=== PATIENT | male | born 1955 | race Caucasian/White ===

== ENCOUNTER → 2016-10-02 | Outpatient (CLI) | payer MEDICARE ==
[~2016-10-02] MED LIST: ALBU17IN INH; ASPI1TAB PO; CLAR10CA3 PO; DULC5TAB PO; IBUP200C PO; LISI10TA4 PO; PREV30CA11 PO; SPIR1CAP INH; SYMB16INH INH; VITA100066 PO; VITA500C24 PO
--- NOTE | 2016-10-02 15:17 | REP ---
REASON: Tobacco abuse. COMPARISON: None. Only the lung window images were sent to the PACS system for review. There is evidence of lung field hyperexpansion. There is evidence of bibasilar cylindrical bronchiectasis. In the left upper lobe, there is a 4 mm sized nodule. Within this nodule and eccentrically located, there is a tiny dot of calcification, which is difficult to assess due to the tiny lesional size. IMPRESSION: Positive screening CT examination of the lungs as described above. Signed by Erick Martinez DO 10/02/2016 04:18 P
== END ==
LOC: M RAD 12:44
PROVIDERS: ATTEND Internal Medicine Pulmonary Disease
DX: Z12.2 Encounter for screening for malignant neoplasm of respiratory organs (principal); Z72.0 Tobacco use; R91.8 Other nonspecific abnormal finding of lung field

== ENCOUNTER → 2016-11-07 | Outpatient (REF) | payer MEDICARE ==
[2016-11-07 18:44] LABS: INR 0.85
== END ==
LOC: M LAB REF 16:54
PROVIDERS: ATTEND Internal Medicine
DX: R23.3 Spontaneous ecchymoses (principal)

== ENCOUNTER → 2017-12-03 | Outpatient (REF) | payer MEDICARE ==
[2017-12-04 14:33] LABS: TOTAL PROTEIN 7.8 GM/DL (6.4-8.2)
[2017-12-08 14:45] LABS: ALBUMIN 4.13 GM/DL (3.29-5.55); ALBUMIN % 52.9 % (55.8-66.1); ALPHA-1-GLOBULIN % 4.5 % (2.9-4.9); ALPHA-1-GLOBULINS 0.35 GM/DL (0.17-0.41); ALPHA-2-GLOBULINS 1.03 GM/DL (0.42-0.99); ALPHA-2-GLOBULINS % 13.2 % (7.1-11.8); BETA-1-GLOBULINS 0.54 GM/DL (0.28-0.60); BETA-1-GLOBULINS % 6.9 % (4.7-7.2); BETA-2-GLOBULINS 0.41 GM/DL (0.19-0.55); BETA-2-GLOBULINS % 5.2 % (3.2-6.5); GAMMA GLOBULIN % 17.3 % (11.1-18.8); GAMMA GLOBULINS 1.35 GM/DL (0.65-1.58)
== END ==
LOC: M LAB REF 13:30
DX: R74.8 Abnormal levels of other serum enzymes (principal); M19.90 Unspecified osteoarthritis, unspecified site
CPT/HCPCS: 84165

== ENCOUNTER → 2018-04-06 | Outpatient (CLI) | payer MEDICARE | LOC: M RAD 06:49 | DX: J43.2 Centrilobular emphysema (principal); R91.8 Other nonspecific abnormal finding of lung field; J84.10 Pulmonary fibrosis, unspecified | CPT/HCPCS: 71250 ==

== ENCOUNTER → 2018-12-12 | Outpatient (CLI) | payer MEDICARE ==
[~2018-12-12] MED LIST changes: -ASPI1TAB PO; +ASPI81TA26 PO; -IBUP200C PO; +IBUP200C25 PO; +PREV1CAP PO; -PREV30CA11 PO
[2018-12-12 17:35] LABS: HEMATOCRIT 48.8 % (42.0-52.0); HEMOGLOBIN 16.2 g/dl (13.5-17.5); MEAN CORPUSCULAR HEMOGLOBIN 32.7 pg (27.0-33.0); MEAN CORPUSCULAR HGB CONC 33.2 g/dl (32.0-36.5); MEAN CORPUSCULAR VOLUME 98.6 fl (80.0-96.0); PLATELET COUNT, AUTOMATED 339 10^3/uL (150-450); RED BLOOD COUNT 4.95 10^6/uL (4.30-6.10); WHITE BLOOD COUNT 7.8 10^3/uL (4.0-10.0)
[2018-12-12 17:38] LABS: APPEARANCE, URINE CLEAR (CLEAR); BACTERIA, URINE AUTO NEGATIVE (NEGATIVE); BILIRUBIN, URINE AUTO NEGATIVE (NEGATIVE); BLOOD, URINE BLOOD NEGATIVE (NEGATIVE); COLOR, URINE YELLOW (YELLOW); GLUCOSE, URINE (UA) AUTO NEGATIVE (NEGATIVE); KETONE, URINE AUTO NEGATIVE (NEGATIVE); LEUKOCYTE ESTERASE, URINE AUTO NEGATIVE (NEGATIVE); MUCUS, URINE SMALL (NEGATIVE); NITRITE, URINE AUTO NEGATIVE (NEGATIVE); PROTEIN, URINE AUTO NEGATIVE (NEGATIVE); RBC, URINE AUTO 0 /HPF (0-3); SPECIFIC GRAVITY URINE AUTO 1.018 (1.002-1.035); SQUAMOUS EPITHELIAL CELL UR AU 0 /HPF (0-6); UROBILINOGEN, URINE AUTO 0.2 mg/dL (0.0-2.0); WBC, URINE AUTO 0 /HPF (0-3)
[2018-12-12 19:35] LABS: BLOOD UREA NITROGEN 10 MG/DL (7-18); CALCIUM LEVEL 9.6 MG/DL (8.8-10.2); CARBON DIOXIDE LEVEL 24 MEQ/L (21-32); CHLORIDE LEVEL 104 MEQ/L (98-107); CHOLESTEROL LEVEL 212 MG/DL (<200); CHOLESTEROL RISK RATIO 3.593 (<5); GLOMERULAR FILTRATION RATE > 60.0 (>49); GLUCOSE, FASTING 96 MG/DL (70-100); HDL CHOLESTEROL 59 MG/DL (>40); LDL CHOLESTEROL 130 MG/DL (<100); NON-HDL-C 153 MG/DL; POTASSIUM SERUM 4.5 MEQ/L (3.5-5.1); SODIUM LEVEL 138 MEQ/L (136-145); TRIGLYCERIDES LEVEL 117 MG/DL (<150)
== END ==
LOC: M ADAMS 09:54
PROVIDERS: ATTEND Internal Medicine
DX: I10 Essential (primary) hypertension (principal); E78.00 Pure hypercholesterolemia, unspecified; Z13.89 Encounter for screening for other disorder

== ENCOUNTER → 2019-04-08 | Outpatient (CLI) | payer MEDICARE ==
--- NOTE | 2019-04-08 14:33 | REP ---
CT CHEST WITHOUT CONTRAST: HISTORY: Solitary pulmonary nodule. COMPARISON: Chest CT study, April 06, 2018. Also reviewed are CT studies from April 02, 2017 and October 02, 2016. The most recent prior study showed a new 4 mm noncalcified nodule in the right lower lobe. CT FINDINGS: The originally noted 4 mm right upper lobe nodule is again seen, unchanged since the September 2016 prior study. This was shown to have calcific Hounsfield unit numbers on the prior exam. The previously noted and stable left lower lobe nodule is again seen, unchanged. The recently identified right lower lobe nodule is not seen today. There is an inflammatory or postinflammatory pattern of multiple new tiny nodules in the posterior lung gutter in the left lower lobe and posteromedially in the left lower lobe. These changes are new from the prior study and most likely reflect inflammatory changes. There are emphysematous changes in the lower lobes bilaterally as before. No pleural or pericardial effusion is seen. There are scattered stable mediastinal lymph nodes again noted, unchanged. No adrenal lesion is observed. Minimal vascular calcification is seen. IMPRESSION: Stable right upper lobe and left lower lobe nodules, unchanged and benign. Recently identified right lower lobe nodule is not seen today. Today's study shows likely postinflammatory changes in the left lower lobe. Electronically Signed by Jacoby Mancilla MD 04/08/2019 04:06 P
== END ==
LOC: M RAD 11:28
PROVIDERS: ATTEND Internal Medicine Pulmonary Disease
DX: R91.1 Solitary pulmonary nodule (principal)

== ENCOUNTER → 2019-06-14 | Outpatient (REF) | payer MEDICARE ==
[2019-06-14 13:09] LABS: BASO # 0.1 10^3/uL (0.0-0.2); BASO % 1.4 % (0.0-1.0); EOS # 0.1 10^3/uL (0.0-0.5); EOS % 1.7 % (0.0-3.0); HEMATOCRIT 50.7 % (42.0-52.0); LYMPH # 1.7 10^3/uL (1.5-5.0); LYMPH % 20.8 % (24.0-44.0); MEAN CORPUSCULAR HEMOGLOBIN 32.8 pg (27.0-33.0); MEAN CORPUSCULAR HGB CONC 33.5 g/dl (32.0-36.5); MEAN CORPUSCULAR VOLUME 97.7 fl (80.0-96.0); MONO # 0.8 10^3/uL (0.0-0.8); MONO % 10.3 % (0.0-5.0); NEUTROPHILS # 5.3 10^3/uL (1.5-8.5); NEUTROPHILS % 65.4 % (36.0-66.0); PLATELET COUNT, AUTOMATED 389 10^3/uL (150-450); RED BLOOD COUNT 5.19 10^6/uL (4.30-6.10); WHITE BLOOD COUNT 8.1 10^3/uL (4.0-10.0)
[2019-06-14 13:48] LABS: ALBUMIN 3.7 GM/DL (3.2-5.2); ALT/SGPT 51 U/L (12-78); BILIRUBIN,TOTAL 0.6 MG/DL (0.2-1.0); BLOOD UREA NITROGEN 10 MG/DL (7-18); CALCIUM LEVEL 9.4 MG/DL (8.8-10.2); CARBON DIOXIDE LEVEL 26 MEQ/L (21-32); CHLORIDE LEVEL 100 MEQ/L (98-107); CHOLESTEROL LEVEL 208 MG/DL (<200); CHOLESTEROL RISK RATIO 3.924 (<5); GLOMERULAR FILTRATION RATE > 60.0 (>49); GLUCOSE, FASTING 82 MG/DL (70-100); HDL CHOLESTEROL 53 MG/DL (>40); LDL CHOLESTEROL 126 MG/DL (<100); NON-HDL-C 155 MG/DL; POTASSIUM SERUM 4.8 MEQ/L (3.5-5.1); SODIUM LEVEL 136 MEQ/L (136-145); THYROID STIMULATING HORMONE 0.959 uIU/ML (0.358-3.740); TOTAL PROTEIN 7.7 GM/DL (6.4-8.2); TRIGLYCERIDES LEVEL 143 MG/DL (<150)
== END ==
LOC: M LABDRWAD 12:30
PROVIDERS: ATTEND Internal Medicine
DX: Z12.5 Encounter for screening for malignant neoplasm of prostate (principal); I10 Essential (primary) hypertension; E78.00 Pure hypercholesterolemia, unspecified
CPT/HCPCS: 36415; 80053; 80061; 84443; 85027; G0103

== ENCOUNTER → 2019-11-30 | Outpatient (REF) | payer MEDICARE ==
[~2019-11-30] MED LIST changes: +ALBU83IN INH; +AMLO1TAB25 PO; +ASPI81CH8 PO; +ATOR40TA75 PO; +BUPR-332 PO; +CLOP75TA2 PO; +D31000TA2 PO; +PANT20TA6 PO; +PROAAER10 INH
[2019-11-30 14:23] LABS: BASO # 0.1 10^3/uL (0.0-0.2); BASO % 1.1 % (0.0-1.0); EOS # 0.1 10^3/uL (0.0-0.5); EOS % 1.1 % (0.0-3.0); HEMATOCRIT 53.4 % (42.0-52.0); HEMOGLOBIN 17.2 g/dl (13.5-17.5); LYMPH # 1.9 10^3/uL (1.5-5.0); MEAN CORPUSCULAR HEMOGLOBIN 31.9 pg (27.0-33.0); MEAN CORPUSCULAR HGB CONC 32.2 g/dl (32.0-36.5); MEAN CORPUSCULAR VOLUME 99.1 fl (80.0-96.0); MONO # 0.9 10^3/uL (0.0-0.8); MONO % 10.1 % (0.0-5.0); NEUTROPHILS # 6.3 10^3/uL (1.5-8.5); NEUTROPHILS % 67.3 % (36.0-66.0); PLATELET COUNT, AUTOMATED 405 10^3/uL (150-450); RED BLOOD COUNT 5.39 10^6/uL (4.30-6.10); WHITE BLOOD COUNT 9.3 10^3/uL (4.0-10.0)
[2019-11-30 14:26] LABS: APPEARANCE, URINE CLEAR (CLEAR); BACTERIA, URINE AUTO NEGATIVE (NEGATIVE); BILIRUBIN, URINE AUTO NEGATIVE (NEGATIVE); BLOOD, URINE BLOOD NEGATIVE (NEGATIVE); COLOR, URINE YELLOW (YELLOW); GLUCOSE, URINE (UA) AUTO NEGATIVE (NEGATIVE); KETONE, URINE AUTO NEGATIVE (NEGATIVE); LEUKOCYTE ESTERASE, URINE AUTO NEGATIVE (NEGATIVE); MUCUS, URINE SMALL (NEGATIVE); NITRITE, URINE AUTO NEGATIVE (NEGATIVE); PROTEIN, URINE AUTO NEGATIVE (NEGATIVE); RBC, URINE AUTO 2 /HPF (0-3); SPECIFIC GRAVITY URINE AUTO 1.019 (1.002-1.035); SQUAMOUS EPITHELIAL CELL UR AU 0 /HPF (0-6); UROBILINOGEN, URINE AUTO 0.2 mg/dL (0.0-2.0); WBC, URINE AUTO 1 /HPF (0-3)
[2019-11-30 15:23] LABS: ALBUMIN 3.6 GM/DL (3.2-5.2); ALT/SGPT 45 U/L (12-78); BILIRUBIN,TOTAL 0.6 MG/DL (0.2-1.0); BLOOD UREA NITROGEN 11 MG/DL (7-18); CALCIUM LEVEL 9.4 MG/DL (8.8-10.2); CARBON DIOXIDE LEVEL 27 MEQ/L (21-32); CHLORIDE LEVEL 101 MEQ/L (98-107); CHOLESTEROL LEVEL 192 MG/DL (<200); CHOLESTEROL RISK RATIO 3.764 (<5); GLOMERULAR FILTRATION RATE > 60.0 (>49); GLUCOSE, FASTING 85 MG/DL (70-100); HDL CHOLESTEROL 51 MG/DL (>40); LDL CHOLESTEROL 125 MG/DL (<100); NON-HDL-C 141 MG/DL; POTASSIUM SERUM 4.7 MEQ/L (3.5-5.1); SODIUM LEVEL 133 MEQ/L (136-145); TOTAL PROTEIN 7.8 GM/DL (6.4-8.2); TRIGLYCERIDES LEVEL 81 MG/DL (<150)
[2019-11-30 16:45] LABS: FOLATE 13.7 NG/ML; VITAMIN B12 LEVEL 625 PG/ML
== END ==
LOC: M LABDRWAD 12:53
PROVIDERS: ATTEND Internal Medicine
DX: R73.09 Other abnormal glucose (principal); I10 Essential (primary) hypertension; E78.00 Pure hypercholesterolemia, unspecified; R53.1 Weakness; F10.99 Alcohol use, unspecified with unspecified alcohol-induced disorder; E78.1 Pure hyperglyceridemia

== ENCOUNTER → 2019-12-01 | Outpatient (CLI) | payer MEDICARE | LOC: M LABDRWAD 15:02 | PROVIDERS: ATTEND Internal Medicine | DX: E87.1 Hypo-osmolality and hyponatremia (principal); R53.1 Weakness; M19.90 Unspecified osteoarthritis, unspecified site; F10.99 Alcohol use, unspecified with unspecified alcohol-induced disorder; Z13.89 Encounter for screening for other disorder ==

== ENCOUNTER → 2019-12-02 | Outpatient (CLI) | payer MEDICARE ==
[~2019-12-02] MED LIST changes: -AMLO1TAB25 PO; -ASPI81CH8 PO; -ATOR40TA75 PO; -CLOP75TA2 PO; -D31000TA2 PO; +PANT20TA2 PO; -PANT20TA6 PO; +VITAD1000T PO
[2019-12-02 13:35] LABS: C REACTIVE PROTEIN QUANTITATIV 1.61 MG/DL (0.00-0.30)
[2019-12-06 16:06] LABS: Lyme Disease IgG/IgM Antibodie <0.91 ISR (0.00-0.90); Lyme Disease IgM Ab Quantitati <0.80 index (0.00-0.79); VITAMIN B1 LEVEL WHOLE BLOOD 138.3 nmol/L (66.5-200.0); ZINC PLASMA 77 ug/dL (56-134)
== END ==
LOC: M LABDRWAD 08:14
PROVIDERS: ATTEND Internal Medicine
DX: E87.1 Hypo-osmolality and hyponatremia (principal); R53.1 Weakness; M19.90 Unspecified osteoarthritis, unspecified site; F10.99 Alcohol use, unspecified with unspecified alcohol-induced disorder; Z13.89 Encounter for screening for other disorder

== ENCOUNTER 2019-12-06 17:20 | Inpatient (IN) | payer MEDICARE ==
[~2019-12-06] VITALS: Ht 180.3 cm; Wt 80.2 kg
[~2019-12-06 17:20] MED LIST changes: -ALBU83IN INH; -BUPR-332 PO; -PANT20TA2 PO; -PROAAER10 INH; -VITAD1000T PO
[2019-12-06 18:32] LABS: BASO # 0.1 10^3/uL (0.0-0.2); BASO % 1.2 % (0.0-1.0); EOS # 0.2 10^3/uL (0.0-0.5); HEMATOCRIT 48.6 % (42.0-52.0); HEMOGLOBIN 16.5 g/dl (13.5-17.5); LYMPH % 19.9 % (24.0-44.0); MEAN CORPUSCULAR VOLUME 94.4 fl (80.0-96.0); MONO # 1.1 10^3/uL (0.0-0.8); MONO % 10.9 % (0.0-5.0); NEUTROPHILS # 6.7 10^3/uL (1.5-8.5); NEUTROPHILS % 65.5 % (36.0-66.0); PLATELET COUNT, AUTOMATED 399 10^3/uL (150-450); RED BLOOD COUNT 5.15 10^6/uL (4.30-6.10); WHITE BLOOD COUNT 10.2 10^3/uL (4.0-10.0)
[2019-12-06] MEDS ORDERED: PROAAER10 INH (18:35)
[2019-12-06] MEDS ORDERED: PANT20TA2 PO (18:35)
[2019-12-06] MEDS ORDERED: BUPR-332 PO (18:35)
[2019-12-06] MEDS ORDERED: VITAD1000T PO (18:35)
[2019-12-06] MEDS ORDERED: ALBU83IN INH (18:35)
[2019-12-06 18:45] LABS: INR 0.9; PROTHROMBIN TIME 11.9 SECONDS (11.8-14.0)
[2019-12-06] MEDS ORDERED: ALBUTEROL SULFATE 2.5 MG/0.5 ML INH NEB SOLN INH PRN (18:45)
[2019-12-06] MEDS ORDERED: ALBUTEROL 90 MCG/ACT 8GM HFA INHALER INH PRN (18:45)
[2019-12-06 18:51] LABS: ETHYL ALCOHOL (ETHANOL) < 0.003 % (0.000-0.010)
[2019-12-06 18:54] LABS: ALBUMIN 3.3 GM/DL (3.2-5.2); BILIRUBIN,DIRECT 0.1 MG/DL (0.0-0.2); BILIRUBIN,TOTAL 0.5 MG/DL (0.2-1.0); TOTAL PROTEIN 7.2 GM/DL (6.4-8.2)
[2019-12-06] MEDS: MULTIVITAMINS/MINERALS THERAP 1 TAB PO SCH (18:56)
[2019-12-06] MEDS: FOLIC ACID 1 MG TAB PO SCH (18:56)
[2019-12-06 19:22] LABS: RHEUMATOID FACTOR QUANT < 10.0 IU/ML (<15.0)
[2019-12-06 19:34] LABS: D-DIMER QUANT 747.25 ng/ml (<500)
--- NOTE | 2019-12-06 20:00 | REPVR ---
PROCEDURE INFORMATION: Exam: US Duplex Bilateral Extracranial Arteries Exam date and time: 12/06/2019 7:41 PM Age: 64 years old Clinical indication: Other: CVA TECHNIQUE: Imaging protocol: Real-time Duplex ultrasound scan of the bilateral carotid and vertebral arteries combining woodard scale, color Doppler and spectral waveform analysis. Bilateral exam. COMPARISON: No relevant prior studies available. FINDINGS: Right common carotid artery: Minimal noncalcific plaque distal CCA. Otherwise unremarkable. No occlusion or significant stenosis. Waveforms are normal. Right internal carotid artery: Minimal noncalcific plaque in the proximal ICA. No occlusion or significant stenosis. Waveforms are normal. Right ICA/CCA ratio: Within normal limits. 0.97 Right external carotid artery: No stenosis in the origin. Right vertebral artery: Unremarkable. Antegrade flow. Left common carotid artery: Minimal noncalcific plaque distal CCA. Otherwise unremarkable. No occlusion or significant stenosis. Waveforms are normal. Left internal carotid artery: Minimal noncalcific plaque in the proximal ICA. No occlusion or significant stenosis. Waveforms are normal. Left ICA/CCA ratio: Within normal limits. 0.84 Left external carotid artery: No stenosis in the origin. Left vertebral artery: Unremarkable. Antegrade flow. IMPRESSION: 1. Mild noncalcific plaque in the distal CCA is and proximal ICAs bilaterally resulting in a mild 2. Stenosis well in the 50% using SRU criteria. 3. Normal directional flow in the vertebral a a arteries. REFERENCES: SRU CRITERIA. The degree of internal carotid artery stenosis is based on criteria defined by the Society of Radiologists in Ultrasound (SRU). Normal is no stenosis. Mild is less than 50% stenosis. Moderate is 50-69% stenosis. Severe is greater than 69% stenosis to near occlusion. Near occlusion is a markedly narrowed lumen. Total occlusion is no detectable patent lumen. Electronically signed by: Darnell Alcantara On 12/06/2019 20:00:13 PM
[2019-12-06] MEDS: SIMVASTATIN 10 MG TAB PO SCH (20:08)
[2019-12-06] MEDS: LORazepam 2 MG TAB PO PRN (20:08)
[2019-12-06] MEDS: THIAMINE 100 MG TAB PO SCH (20:08)
[2019-12-06] MEDS: SYMBICORT 160/4.5MCG INHALER 6GM INH SCH (20:20)
[2019-12-06 20:23] VITALS: BP 148/86
[2019-12-06 20:23] LABS: ERYTHROCYTE SEDIMENTATION RATE 4 mm/hr (0-20)
[2019-12-06] MEDS ORDERED: NICOTINE POLACRILEX 2 MG GUM PO ONE (21:15)
[2019-12-06] MEDS ORDERED: NICOTINE POLACRILEX 2 MG GUM PO PRN (21:15)
[2019-12-06] MEDS ORDERED: amLODIPine 10 MG TAB PO ONE (21:15)
[2019-12-06] MEDS ORDERED: SLF 3 ML SYR IV PRN (21:45)
[2019-12-06] MEDS: SLF 3 ML SYR IV SCH (22:00)
[2019-12-06 22:32] LABS: HEMATOCRIT 46.7 % (42.0-52.0); HEMOGLOBIN 15.8 g/dl (13.5-17.5); MEAN CORPUSCULAR HEMOGLOBIN 32.3 pg (27.0-33.0); MEAN CORPUSCULAR HGB CONC 33.8 g/dl (32.0-36.5); MEAN CORPUSCULAR VOLUME 95.5 fl (80.0-96.0); PLATELET COUNT, AUTOMATED 352 10^3/uL (150-450); RED BLOOD COUNT 4.89 10^6/uL (4.30-6.10); WHITE BLOOD COUNT 8.9 10^3/uL (4.0-10.0)
[2019-12-06] MEDS: NICOTINE 21MG/24HR 1 EA TRANSDERMAL TD SCH (23:23)
[2019-12-07] VITALS: BP 136/86
[2019-12-07 04:00] VITALS: BP 155/79
--- NOTE | 2019-12-07 04:41 | REP ---
CHEST: REASON: History of COPD, dyspnea. FINDINGS: The technique utilized in obtaining the radiograph has magnified the cardiac silhouette and accentuated the interstitial markings. The superior mediastinal structures are midline. The cardiac silhouette is unremarkable in size, shape, and position. The diaphragmatic surfaces of the lungs are regular, and the costophrenic angles are clear. The pulmonary cardozo are clear. The imaged osseous structures are intact. IMPRESSION: There is no acute cardiopulmonary disease. Electronically Signed by Erick Martinez DO 12/07/2019 11:37 A
[2019-12-07] MEDS: SLF 3 ML SYR IV SCH ×3 (05:04→20:07)
[2019-12-07 06:17] LABS: HEMATOCRIT 48.5 % (42.0-52.0); HEMOGLOBIN 16.3 g/dl (13.5-17.5); MEAN CORPUSCULAR HGB CONC 33.6 g/dl (32.0-36.5); MEAN CORPUSCULAR VOLUME 95.1 fl (80.0-96.0); PLATELET COUNT, AUTOMATED 383 10^3/uL (150-450); WHITE BLOOD COUNT 7.9 10^3/uL (4.0-10.0)
[2019-12-07 06:28] LABS: HEMOGLOBIN A1c 5.6 %
[2019-12-07 06:45] LABS: ALBUMIN 3.2 GM/DL (3.2-5.2); ALT/SGPT 32 U/L (12-78); BILIRUBIN,DIRECT 0.1 MG/DL (0.0-0.2); BILIRUBIN,TOTAL 0.4 MG/DL (0.2-1.0); BLOOD UREA NITROGEN 10 MG/DL (7-18); CARBON DIOXIDE LEVEL 26 MEQ/L (21-32); CHLORIDE LEVEL 102 MEQ/L (98-107); CHOLESTEROL LEVEL 171 MG/DL (<200); CHOLESTEROL RISK RATIO 4.071 (<5); CREATININE FOR GFR 0.83 MG/DL (0.70-1.30); GLOMERULAR FILTRATION RATE > 60.0 (>49); GLUCOSE, FASTING 93 MG/DL (70-100); HDL CHOLESTEROL 42 MG/DL (>40); LDL CHOLESTEROL 108 MG/DL (<100); NON-HDL-C 129 MG/DL; POTASSIUM SERUM 4.3 MEQ/L (3.5-5.1); SODIUM LEVEL 135 MEQ/L (136-145); TOTAL PROTEIN 6.8 GM/DL (6.4-8.2); TRIGLYCERIDES LEVEL 105 MG/DL (<150)
[2019-12-07] MEDS: TIOTROPIUM INHALER/CAPSULE (SPIRIVA) INH SCH (07:19)
[2019-12-07] MEDS: SYMBICORT 160/4.5MCG INHALER 6GM INH SCH ×2 (07:19→20:04)
[2019-12-07 08:00] VITALS: BP_SYST 152; BP_DIAS 84; BP_DIAS 88
[2019-12-07] MEDS: VITAMIN D 1,000 INTERNATIONAL UNITS TABLET PO SCH (08:13)
[2019-12-07] MEDS: THIAMINE 100 MG TAB PO SCH ×2 (08:14→20:06)
[2019-12-07] MEDS: buPROPion **XL** TABLET 150MG (WELLBUTRIN XL) PO SCH (08:14)
[2019-12-07] MEDS: PANTOPRAZOLE 20 MG TAB PO SCH (08:14)
[2019-12-07] MEDS: MULTIVITAMINS/MINERALS THERAP 1 TAB PO SCH (08:14)
[2019-12-07] MEDS: FOLIC ACID 1 MG TAB PO SCH (08:15)
--- NOTE | 2019-12-07 08:17 | ECGEPIP ---
[facility] - ED Test Date: 2019-12-06 Pat Name: ITALO CARIAS Department: Room: - Gender: Male Member Of Congress: ABDON : 1955 Requested By: Darryl Apple Order Number: [id number] Reading MD: Kellen Falk Measurements Intervals [place] Rate: 88 P: 76 MI: 169 QRS: 50 QRSD: 93 T: 70 QT: 353 QTc: 428 Interpretive Statements SINUS RHYTHM RIGHT VENTRICULAR CONDUCTION DELAY No prior Electronically Signed on 12-07-2019 8:17:10 EDT by Kellen Falk
[2019-12-07] MEDS: amLODIPine 10 MG TAB PO SCH (08:20)
[2019-12-07 10:48] LABS: HEMATOCRIT 48.3 % (42.0-52.0); HEMOGLOBIN 16.4 g/dl (13.5-17.5); MEAN CORPUSCULAR HEMOGLOBIN 32.1 pg (27.0-33.0); MEAN CORPUSCULAR VOLUME 94.5 fl (80.0-96.0); PLATELET COUNT, AUTOMATED 390 10^3/uL (150-450); RED BLOOD COUNT 5.11 10^6/uL (4.30-6.10); WHITE BLOOD COUNT 9.2 10^3/uL (4.0-10.0)
--- NOTE | 2019-12-07 11:01 | IPNPDOC ---
Text Note Date of Service The patient was seen on 12/07/19. NOTE Mr. Lauren was seen at bedside this morning and repored no changes in his con dition overnight. He seems to be a poor historian and only knows that his recent MRI has some vague ministroke findings and that his brain is smaller than it should be. He states that he was seeing his PCP at a already scheduled visit and was thought to have new onset memory deficits and improper balance, this prompting the MRI w/ and w/o contrast. He states that at baseline he only has the respiratory capacity to move to his couch from his bed and vice-versa, which he blames on his extensive smoking use/history. He reports chronic tinnitus in both ears due labyrinthitis, denies any current or recent headaches, FNDs, changes in vision, sensation loss. Physical Exam: Vitals: See Below General: disheveled, older than stated age appearing well nourished male laying in bed in no apparent distress HEENT: EOMI. CN V, VII, II, IX, X appear normal. Conjunctiva normal CV: RRR, No murmurs, rubs, gallops noted Respiratory: Lungs CTA B/L. No wheezing, rales, rhonchi Abdomen: Obese abdomen. No organomegaly noted. No bruising or discolorations. Extremities: No extremity edema. Pulses equal and normal in all four extremities. Neuro: No FND. Muscle strength 5/5 in all extremities but cannot test R should due to unrelated shoulder pain. CNII-XII intact. AA X3. Dysmetria on finger to nose testing with a possible intention tremor R>L Assessment and Plan: This is a 64 year old male with a Pmhx significant for alcoholism who presented to [facility] ER due to evidence of multiple R MCA subacute infarcts on a semi-recent brain MRI ordered due to concerns his PCP had regarding new balance deficits, memory loss, and mental status changes in Mr. Lauren. Neuro was consulted and recommended a coagulopathy/vasculitis workup and a MRA to further characterize Mr. Lauren vascular condition. Mr Lauren himself states that he feels fine and has not noticed any deficits currently. Plan: #Multiple Subacute R MCA infarcts with global atrophy and evidence of past lacunar infarcts: -Pt on ASA 325 mg PO QD -Neuro consulted and we greatly appreciate their input and assistance in this case -Brain MRA ordered and pending -Fibrinogen, INR 0.9 and D-Dimer elevated indicating a possible hypercoagulable state -Coagulopathy/vasculitis workup ordered and pending (including ATIII activity, FII mutation, FV Leiden, Lupus workup, TRISTIN, AMA ect. -Carotid US shows mild-moderate stenosis of B/L carotids approximately 50% occluded -MRI shows possible occlusion of multiple intracranial vessels which will be further explored with MRA -Continue Simvastatin 30 mg QHS PO -Lipid Panel normal with the exception of LDL 108 -PT/OT consults placed #Alcoholism: -CIWA protocol initiated -Ethyl alcohol <0.03 in ER -B1, folic acid and multivitamin ordered #COPD 2/2 Tobacco Dependence: -Continue nicotine replacement patches -Continue budesonide/formoterol fumarate inhalers -Continue Albuterol inhalers -Continue Tiotropium [place] inhaler #HTN 2/ withdrawal: -Continue Amlodipine 10 mg -Maintain between 140-180 systolic #Depression: -Continue Wellbutrin #Vit D Deficiency: -On Vit D supplementation #Reflux: -Continue Protonix #DVT Prophylaxis: Lovenox Disposition: Discharge pending further evaluation of subacute infarct etiologies GME ATTESTATION I have personally evaluated and examined the patient. Discussed with resident/student regarding plan of care and agree with the above assessment and plan. VS,Marvin, I+O VS, Vashtie, I+O Laboratory Tests 12/06/19 18:04 12/06/19 22:03 12/07/19 05:20 Vital Signs Date Time Temp Pulse Resp B/P (MAP) Pulse Ox O2 Delivery O2 Flow Rate FiO2 12/07/19 08:20 77 152/84 12/07/19 08:00 97.3 17 94 Room Air I&O- Last 24 Hours up to 6 AM 12/07/19 06:00 Intake Total 0 ml Output Total 250 ml Balance -250 ml WAQAR MERCADO OMS-3 Dec 07, 2019 11:01 DARY DOMINGUEZ D.O. Dec 07, 2019 16:46 CLOVIS GORDILLO MD Dec 07, 2019 18:32
[2019-12-07] MEDS: ASPIRIN 325 MG TAB PO SCH (11:45)
--- NOTE | 2019-12-07 12:16 | HPE ---
DATE OF ADMISSION: 12/06/2019 CHIEF COMPLAINT: 1. Abnormal MRI. 2. "I do not walk good," for two weeks. HISTORY OF PRESENT ILLNESS: This is a 64-year-old alcoholic with chronic obstructive pulmonary disease (COPD) who presented to his primary care physician two weeks ago with complaints of "I do not walk good." The patient says that he has no muscle tone, usually drags his feet and never thought about his gait abnormality due to chronic history of vertigo. The patient has been falling down at home especially when he has his whiskey. He is slow to get up and has had proximal muscle weakness, difficult to get out of a couch. He says that he usually uses a cane and a walker for the past two weeks because of difficulty moving around, difficulty getting up from a sitting position. He has felt increasingly weak, feeling like he has had to drag his feet. He complains of neuropathy on the right fingertips but is still able to carry on with his activities of daily living (ADLs). According to the patient, he has been increasingly clumsy and sometimes falls in his garage. He says that he lands on the beer cans, his finds him there, and gets the neighbor to get him up usually. He was seen by Dr. Pizano two weeks ago who ordered an MRI of the brain. MRI done today showed right middle cerebral artery (MCA) infarcts and lacunar infarcts. Per emergency room (ER) physician, the patient's vascular Doppler, carotid Doppler showed mild noncalcific plaque in the distal common carotid artery (CCA) and proximal internal carotid arteries (ICAs) bilaterally resulting in mild stenosis well into 50% using Society of Radiologists in Ultrasound (SRU) criteria with normal directional flow in the vertebral arteries. Echocardiogram is pending. The patient has been started on aspirin and Zocor. Hospitalist was asked to admit. PAST MEDICAL HISTORY: Vertigo, depression, labyrinthitis, chronic obstructive pulmonary disease (COPD), left heel injury, diverticulosis, nonbleeding internal hemorrhoids, splenic flexure polyps. ALLERGIES: No known drug allergies. SOCIAL HISTORY: The patient is a heavy drinker, usually drinks about 12 beers a day, uses a carton of cigarettes per week, 20 in one pack with 10 packs, starting smoking at the age of 10. 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 He lives with his . Five steps into the home. Everything is on one floor. Healthcare proxy is Gertrude, his . The patient could not remember his 's phone number. Per records, phone number at home is [phone]. FAMILY HISTORY: Father age 86 with alcohol and hepatitis C. Mother in her 40s, in a snow storm in 1967 due to a motor vehicle accident. One brother four years older, unknown medical problems, and possible hypertension. REVIEW OF SYSTEMS: Per history of present illness (HPI), 12-point system otherwise negative. PHYSICAL EXAMINATION: Temperature 98.4, pulse 91, respiratory rate 18, blood pressure 157/91, repeat blood pressure 148/86, 95% on room air. GENERAL: The patient is awake, alert, oriented to person, place and time, answers questions appropriately. Appears disheveled and edentulous. Appears older than his stated age. On neurologic, the patient has dysmetria on [id number] testing. Face is symmetric. Tongue is midline. No pronator drift. Motor function is 4/5 in the left lower extremity, 5/5 bilateral upper extremities, right lower extremity is 5/5. Gait was not tested. Deep tendon reflexes are intact 2+ throughout. No jugular venous distention (JVD) or thyromegaly. Lungs are clear to auscultation. No wheezing, rales, or rhonchi. HEART: S1, S2, sinus rhythm. No murmurs, rubs, or gallops. Abdomen is soft, nontender, nondistended. Positive bowel sounds. EXTREMITIES: No cyanosis or clubbing. EKG: Sinus rhythm. No acute ST-T wave changes. Ventricular rate of 88. ] LABORATORY DATA: White count 8.9, hemoglobin 15, hematocrit 46, platelet count 352. Sodium 133, potassium 4.5, chloride 101, bicarbonate 27, BUN 11, creatinine 1, glucose of 85. IMAGING STUDIES: MRI of the brain per Dr. Arias, right MCA CVA, lacunar infarcts, subacute. ASSESSMENT AND PLAN: 1. Subacute cerebrovascular accident (CVA), right middle cerebral artery (MCA) with gait ataxia and instability along with some memory issues. The patient currently is dependent on his cane and walker at home which is new for the past two weeks. Acute rehabilitation unit (ARU) has been consulted. He has been started on aspirin and Zocor. Check lipid panel in the morning. Tobacco cessation counseling has been provided. Neurologic checks every four hours. Allow for permissive hypertension for now. We will await further recommendations from neurology. Dr. Baez has been consulted. 2. Alcohol abuse, on Clinical [place] Withdrawal Assessment (CIWA) protocol as well as delirium tremens (DT) precautions and seizure precautions. Currently on multivitamin, thiamine and folate. 3. Active tobacco abuse, history of chronic obstructive pulmonary disease (COPD). The patient is on nicotine replacement. 4. Reflux disease concerning for possible alcoholic gastritis. Continue on Protonix now that the patient is on aspirin. 5. Hypertension secondary to withdrawal. Continue on Ativan, CIWA protocol, Norvasc 10 mg daily. 6. Depression, on Wellbutrin. 7. Vitamin D deficiency, on vitamin D supplementation. CODE STATUS: Full code.
[2019-12-07 14:00] VITALS: BP 138/74
[2019-12-07 16:00] VITALS: BP_SYST 158; BP_SYST 164; BP_DIAS 86
[2019-12-07 20:00] VITALS: BP 142/88
[2019-12-07] MEDS: SIMVASTATIN 10 MG TAB PO SCH (20:06)
[2019-12-07] MEDS: LORazepam 2 MG TAB PO PRN (20:06)
[2019-12-07] MEDS: NICOTINE 21MG/24HR 1 EA TRANSDERMAL TD SCH (20:07)
--- NOTE | 2019-12-07 20:30 | REPVR ---
PROCEDURE INFORMATION: Exam: MR Angiogram Head Without Contrast, Arteries Exam date and time: 12/07/2019 7:42 PM Age: 64 years old Clinical indication: Condition or disease; Other: CVA on outpt mri TECHNIQUE: Imaging protocol: MR angiogram head without contrast. Exam focused on the arteries. 3D rendering: MIP and/or 3D reconstructed images were created by the technologist. COMPARISON: US Duplex,carotid (complete) 12/06/2019 7:27 PM FINDINGS: Right middle cerebral artery: There is high-grade stenosis of the M1 segment on the right with marked decrease in the number of middle cerebral arterial branches. Left vertebral artery: The left vertebral artery is very small compared to the right. Basilar artery: There is no evidence of aneurysm of the [id number] and no evidence of tip of the basilar aneurysm. Brain: There are prominent oval areas of CSF signal intensity throughout the basal ganglia region bilaterally consistent with areas of encephalomalacia from old ischemic change. There is also enlargement of the right lateral ventricle consistent with focal atrophy. This is all probably secondary to chronic ischemic changes much greater on the right. There is no area of bright signal intensity left basal ganglia region which could represent calcification. I would recommend a CT scan of the brain without and with contrast for clarification of this. IMPRESSION: 1. There is severe stenosis of the right middle cerebral artery and marked decrease in the number of right middle cerebral branches. 2. Numerous areas old ischemic change throughout the basal ganglia region which is much greater on the right. 3. Area of increased density left basal ganglia region may be calcification but recommend CT scan without and with contrast clarification and to exclude pathology. Electronically signed by: Branden Campos On 12/07/2019 20:29:57 PM
[2019-12-08] VITALS: BP 138/74
[2019-12-08 04:00] VITALS: BP 144/84
[2019-12-08] MEDS: SLF 3 ML SYR IV SCH ×3 (04:08→20:24)
[2019-12-08 05:38] LABS: HEMATOCRIT 47.6 % (42.0-52.0); HEMOGLOBIN 16.2 g/dl (13.5-17.5); MEAN CORPUSCULAR HEMOGLOBIN 32.3 pg (27.0-33.0); MEAN CORPUSCULAR VOLUME 94.8 fl (80.0-96.0); PLATELET COUNT, AUTOMATED 338 10^3/uL (150-450); RED BLOOD COUNT 5.02 10^6/uL (4.30-6.10)
[2019-12-08 05:59] LABS: BLOOD UREA NITROGEN 11 MG/DL (7-18); CALCIUM LEVEL 9.1 MG/DL (8.8-10.2); CARBON DIOXIDE LEVEL 24 MEQ/L (21-32); CHLORIDE LEVEL 106 MEQ/L (98-107); CREATININE FOR GFR 0.82 MG/DL (0.70-1.30); GLOMERULAR FILTRATION RATE > 60.0 (>49); GLUCOSE, FASTING 99 MG/DL (70-100); POTASSIUM SERUM 4.1 MEQ/L (3.5-5.1); SODIUM LEVEL 137 MEQ/L (136-145)
[2019-12-08] MEDS: TIOTROPIUM INHALER/CAPSULE (SPIRIVA) INH SCH (07:12)
[2019-12-08] MEDS: SYMBICORT 160/4.5MCG INHALER 6GM INH SCH ×2 (07:12→20:05)
[2019-12-08 08:00] VITALS: BP 165/82
[2019-12-08] MEDS ORDERED: ISOVUE-370 76% 100ML VIAL As Ordered ONE (08:09)
--- NOTE | 2019-12-08 08:45 | REPVR ---
PROCEDURE INFORMATION: Exam: CT Head Without And With Contrast Exam date and time: 12/08/2019 8:25 AM Age: 64 years old Clinical indication: Abnormal findings; Abnormal radiologic findings of head/skull; Not specified; Patient HX: Abnormal mra TECHNIQUE: Imaging protocol: Computed tomography of the head without and with intravenous contrast. Radiation optimization: All CT scans at this facility use at least one of these dose optimization techniques: automated exposure control; mA and/or kV adjustment per patient size (includes targeted exams where dose is matched to clinical indication); or iterative reconstruction. Contrast material: ISOVUE 370; Contrast volume: 75 ml; Contrast route: INTRAVENOUS (IV); COMPARISON: MRA BRAIN W/O CONTRAST 12/07/2019 7:26 PM FINDINGS: Brain: There is no acute intracranial hemorrhage or mass effect. Mild diffuse volume loss is within the range of normal for patient age. There are small vessel ischemic changes within the periventricular and subcortical white matter, but the normal woodard/white matter delineation is maintained. Chronic lacunar infarcts involve the basal ganglia. There is no abnormal enhancement within the brain. Vasculature: Occlusion of the right proximal middle cerebral artery is seen to better advantage on preceding MRI examination. The Ventricles: Normal. No ventriculomegaly. Bones/joints: Unremarkable. No acute fracture. Sinuses: Visualized sinuses are unremarkable. No fluid levels. Mastoid air cells: Visualized mastoid air cells are well aerated. Soft tissues: Unremarkable. IMPRESSION: No acute intracranial hemorrhage or edema. Chronic changes. Electronically signed by: Samra Dominguez On 12/08/2019 08:45:39 AM
[2019-12-08] MEDS: ENOXAPARIN 40MG/0.4ML SYRINGE (J1650 PER 10MG) SC SCH (09:15)
[2019-12-08] MEDS: VITAMIN D 1,000 INTERNATIONAL UNITS TABLET PO SCH (09:15)
[2019-12-08] MEDS: buPROPion **XL** TABLET 150MG (WELLBUTRIN XL) PO SCH (09:15)
[2019-12-08] MEDS: ASPIRIN 325 MG TAB PO SCH (09:15)
[2019-12-08] MEDS: THIAMINE 100 MG TAB PO SCH ×2 (09:15→20:24)
[2019-12-08] MEDS: FOLIC ACID 1 MG TAB PO SCH (09:16)
[2019-12-08] MEDS: MULTIVITAMINS/MINERALS THERAP 1 TAB PO SCH (09:16)
[2019-12-08] MEDS: amLODIPine 10 MG TAB PO SCH (09:16)
[2019-12-08] MEDS: PANTOPRAZOLE 20 MG TAB PO SCH (09:16)
--- NOTE | 2019-12-08 09:45 | ECHO ---
DATE OF PROCEDURE: 12/07/2019 REFERRING PHYSICIAN: Rosalina Lou MD INDICATION: Cerebrovascular accident. Height 180 cm, weight 82 kg. MEASUREMENTS: IVS 1.3 LV 2.9 LVPW 1.3 LA 3.9 Aorta 3.3 IVC: 0.9 Mitral E wave velocity: 70 A wave: 81 E prime septal: 8.6 E prime lateral: 7.6 FINDINGS: The study is of acceptable technical quality even though only subcostal views were available. The patient is in sinus rhythm. 1. Normal LV size with preserved left ventricle (LV) systolic function and estimated ejection fraction (EF) around 60% to 65%. Mild left ventricular hypertrophy (LVH) is noted. 2. Normal right ventricle (RV) size and systolic function. 3. Both atria appear normal. All four cardiac valves were reasonably well seen and appear grossly normal for patient's age. Minimal sclerosis of aortic valve is noted. No pericardial effusion is noted. Inferior vena cava is of normal size and appropriately collapses with inspiration. Aortic root appears normal. Aortic arch was not seen. Abdominal aorta appears normal. Doppler interrogation of aortic valve reveals no stenosis or insufficiency. Same applies for mitral and pulmonic valve. Trace tricuspid insufficiency seen. Calculated pulmonary artery pressure is within normal limits. Mitral inflow pattern and tissue Doppler imaging of mitral annulus reveal grade 1 diastolic dysfunction. CONCLUSIONS: 1. Study is of acceptable technical quality, the patient is in sinus rhythm. 2. Normal LV size and systolic function, mild LVH, grade 1 diastolic dysfunction. 3. No hemodynamically significant valvular disease. 4. Normal central venous pressure and likely normal pulmonary artery pressure. COMMENT: Relatively normal echocardiogram for patient's age. No findings to explain etiology of cerebrovascular accident (CVA).
[2019-12-08 11:00] LABS: DRVV SCREEN 37.9 SEC
[2019-12-08 11:02] LABS: PTT LUPUS TYPE ANTICOAG SCREEN 0.9 (0-1.2)
[2019-12-08 12:00] VITALS: BP 140/86
[2019-12-08 16:00] VITALS: BP 161/81
--- NOTE | 2019-12-08 17:50 | IPNPDOC ---
Text Note Date of Service The patient was seen on 12/08/19. NOTE Mr. Lauren was seen this morning and reports no change in his condition. He s tates he is currently walking around the room and the hospital wing with a walker which is his baseline (uses walker and cane at baseline). He denies any alcohol withdrawal symptoms including tremors, racing heart beats, sweats ect. He states that he desires to go home and would prefer to follow-up with at home physical rehab over inpatient rehab if possible. He denies any new onset headaches, vision or hearing changes or sudden onset weakness/sensation loss. Physical Exam: Vitals: See Below General: disheveled, older than stated age appearing well nourished male laying in bed in no apparent distress HEENT: EOMI. CN V, VII, II, IX, X appear normal. Conjunctiva normal CV: RRR, No murmurs, rubs, gallops noted Respiratory: Lungs CTA B/L. No wheezing, rales, rhonchi Abdomen: Obese abdomen. No organomegaly noted. No bruising or discolorations. Extremities: No extremity edema. Pulses equal and normal in all four extremities. Neuro: No FND. Muscle strength 5/5 in all extremities but cannot test R should due to unrelated shoulder pain. CNII-XII intact. AA X3. Dysmetria on finger to nose testing with a possible intention tremor R>L Assessment and Plan: This is a 64 year old male with a Pmhx significant for alcoholism who presented to [facility] ER due to evidence of multiple R MCA subacute infarcts on a semi-recent brain MRI ordered due to concerns his PCP had regarding new balance deficits, memory loss, and mental status changes in Mr. Lauren. Neuro was consulted and recommended a coagulopathy/vasculitis workup and a MRA to further characterize Mr. Lauren vascular condition. Mr Lauren himself states that he feels fine and has not noticed any deficits currently. Plan: #Multiple Subacute R MCA infarcts with global atrophy and evidence of past lacunar infarcts: -Switch to ASA 81 mg PO QD -Start Clopidogrel 75 mg PO QD starting tonight -Neuro consulted and we greatly appreciate their input and assistance in this case -Brain MRA ordered and shows R MCA stenosis with evidence of sub-acute R MCA territory strokes. -CT W/ and W/o contrast performed due to finding of area with hyperresonance on MRA with an unknown etiology: CT negative for pathologic signal in brain -Fibrinogen, INR 0.9 and D-Dimer elevated indicating a possible hypercoagulable state -Coagulopathy/vasculitis workup ordered and pending (including ATIII activity, FII mutation, FV Leiden, TRISTIN, AMA ect. -Lupus anticoagulant negative -Carotid US shows mild-moderate stenosis of B/L carotids approximately 50% occluded -Echocardiogram was negative for thrombus or evidence of heart dysfunction -Continue Simvastatin 30 mg QHS PO -Lipid Panel normal with the exception of LDL 108 -PT/OT consults placed #Alcoholism: -CIWA protocol initiated -Ethyl alcohol <0.03 in ER -B1, folic acid and multivitamin ordered #COPD 2/2 Tobacco Dependence: -Continue nicotine replacement patches -Continue budesonide/formoterol fumarate inhalers -Continue Albuterol inhalers -Continue Tiotropium [place] inhaler #HTN 2/2 withdrawal: -Continue Amlodipine 10 mg -Maintain between 140-180 systolic #Depression: -Continue Wellbutrin #Vit D Deficiency: -On Vit D supplementation #Reflux: -Continue Protonix #DVT Prophylaxis: Lovenox 40 mg SC Disposition: Discharge pending further evaluation of subacute infarct etiologies GME ATTESTATION I have personally evaluated and examined the patient. Discussed with resident/student regarding plan of care and agree with the above assessment and plan. VS,Fishbone, I+O VS, Fishbone, I+O Laboratory Tests 12/08/19 05:14 Vital Signs Date Time Temp Pulse Resp B/P (MAP) Pulse Ox O2 Delivery O2 Flow Rate FiO2 12/08/19 16:00 97.1 75 20 161/81 (107) 96 Room Air I&O- Last 24 Hours up to 6 AM 12/08/19 06:00 Intake Total 600 ml Output Total 275 ml Balance 325 ml WAQAR MERCADO OMS-3 Dec 08, 2019 17:50 CLOVIS GORDILLO MD Dec 08, 2019 18:20
[2019-12-08] MEDS ORDERED: CLOPIDOGREL 75 MG TAB PO ONE (18:00)
[2019-12-08 19:42] VITALS: BP 155/78
[2019-12-08] MEDS: NICOTINE 21MG/24HR 1 EA TRANSDERMAL TD SCH (20:24)
[2019-12-08] MEDS: SIMVASTATIN 10 MG TAB PO SCH (20:24)
[2019-12-09 02:00] VITALS: BP 160/89
[2019-12-09 05:22] LABS: HEMATOCRIT 47.2 % (42.0-52.0); HEMOGLOBIN 15.8 g/dl (13.5-17.5); MEAN CORPUSCULAR HGB CONC 33.5 g/dl (32.0-36.5); MEAN CORPUSCULAR VOLUME 95.7 fl (80.0-96.0); PLATELET COUNT, AUTOMATED 365 10^3/uL (150-450); RED BLOOD COUNT 4.93 10^6/uL (4.30-6.10); WHITE BLOOD COUNT 7.6 10^3/uL (4.0-10.0)
[2019-12-09 05:52] LABS: BLOOD UREA NITROGEN 11 MG/DL (7-18); CALCIUM LEVEL 8.7 MG/DL (8.8-10.2); CARBON DIOXIDE LEVEL 24 MEQ/L (21-32); CHLORIDE LEVEL 106 MEQ/L (98-107); CREATININE FOR GFR 0.84 MG/DL (0.70-1.30); GLOMERULAR FILTRATION RATE > 60.0 (>49); GLUCOSE, FASTING 90 MG/DL (70-100); POTASSIUM SERUM 4.2 MEQ/L (3.5-5.1); SODIUM LEVEL 139 MEQ/L (136-145)
[2019-12-09] MEDS: SLF 3 ML SYR IV SCH ×2 (05:59→13:28)
[2019-12-09] MEDS: TIOTROPIUM INHALER/CAPSULE (SPIRIVA) INH SCH (07:19)
[2019-12-09] MEDS: SYMBICORT 160/4.5MCG INHALER 6GM INH SCH (07:19)
[2019-12-09 08:00] VITALS: BP 142/82
[2019-12-09] MEDS ORDERED: CLOPIDOGREL 75 MG TAB PO SCH (09:00)
[2019-12-09] MEDS ORDERED: ASPIRIN 81 MG CHEW TABLET PO SCH (09:00)
[2019-12-09 09:34] VITALS: BP 142/82
[2019-12-09] MEDS: MULTIVITAMINS/MINERALS THERAP 1 TAB PO SCH (09:34)
[2019-12-09] MEDS: buPROPion **XL** TABLET 150MG (WELLBUTRIN XL) PO SCH (09:34)
[2019-12-09] MEDS: amLODIPine 10 MG TAB PO SCH (09:34)
[2019-12-09] MEDS: VITAMIN D 1,000 INTERNATIONAL UNITS TABLET PO SCH (09:34)
[2019-12-09] MEDS: THIAMINE 100 MG TAB PO SCH (09:34)
[2019-12-09] MEDS: PANTOPRAZOLE 20 MG TAB PO SCH (09:34)
[2019-12-09] MEDS: FOLIC ACID 1 MG TAB PO SCH (09:35)
[2019-12-09] MEDS: ENOXAPARIN 40MG/0.4ML SYRINGE (J1650 PER 10MG) SC SCH (09:59)
[2019-12-09] MEDS ORDERED: ASPI81CH8 PO (10:57)
[2019-12-09] MEDS ORDERED: AMLO10TA5 PO (10:57)
[2019-12-09] MEDS ORDERED: ATOR40TA75 PO (10:57)
[2019-12-09] MEDS ORDERED: CLOP75TA2 PO (10:57)
--- NOTE | 2019-12-09 12:44 | DS.PDOC ---
Discharge Summary General Date of Admission Dec 06, 2019 at 18:36 Date of Discharge 12/09/2019 Discharge Summary PROCEDURES PERFORMED DURING STAY: [None]. ADMITTING DIAGNOSES: 1. Subacute cerebrovascular accident (CVA), right middle cerebral artery (MCA) 2.Alcohol abuse 3. Active tobacco use: 4.COPD 5. Reflux disease 6. HTN 6. Depression 7.Vit D deficiency DISCHARGE DIAGNOSES: 1.Subacute cerebrovascular accident (CVA), right middle cerebral artery (MCA) 2.Alcohol abuse 3.Active tobacco use: 4.COPD 5.Reflux disease 6.HTN 6.Depression 7.Vit D deficiency COMPLICATIONS/CHIEF COMPLAINT: CVA. HISTORY OF PRESENT ILLNESS: This is a 64-year-old alcoholic with chronic obstructive pulmonary disease (COPD) who presented to his primary care physician two weeks prior to admission with complaints of "I do not walk good." The patient stated that he has no muscle tone, usually drags his feet and never tho ught about his gait abnormality due to chronic history of vertigo. The patient had been falling down at home especially when he had his daily 5-6 drinks. He is slow to get up and has had proximal muscle weakness, difficult to get out of a couch. He says that he usually uses a cane and a walker for the past two weeks because of difficulty moving around, difficulty getting up from a sitting position. He has felt increasingly weak, feeling like he has had to drag his feet. He complains of neuropathy on the right fingertips but is still able to carry on with his activities of daily living (ADLs). According to the patient, he has been increasingly clumsy and sometimes falls in his garage. He says that he lands on the beer cans, his finds him there, and gets the neighbor to get him up usually. He was seen by Dr. Pizano two weeks ago who ordered an MRI of the brain. MRI done on the day of admission showed right middle cerebral artery (MCA) infarcts and lacunar infarcts. Per emergency room (ER) physician, the patient's vascular Doppler, carotid Doppler showed mild noncalcific plaque i n the distal common carotid artery (CCA) and proximal internal carotid arteries (ICAs) bilaterally resulting in mild stenosis well into 50% using Society of Radiologists in Ultrasound (SRU) criteria with normal directional flow in the vertebral arteries. Echocardiogram is pending. The patient has been started on aspirin and Zocor. Hospitalist was asked to admit. HOSPITAL COURSE: Following admission to the hospital Mr sherman was given a brain MRA, carotid ultrasounds, Head CT w/ and w/o contrast to further characterize his cerebral vascular status. A echocardiogram was performed to assess for cardiac thrombus and was normal. Neurology consultation was placed on admission and thei recommendations regarding blood pressure management, antiplatelet therapy, vasculitis, coagulopathy and imaging assessments were followed. No acute strokes were noted with stenosis of his right MCA being a predominant finding. This patient will be managed outpatient by neurology. His home medications for his COPD and depression were followed. Due to current heavy alcohol use he was placed on CIWA protocol but did not need benzodiazepam therapy and no withdrawal events were noted. Daily thiamine, folic acid and a multivitamin were given as well. DISCHARGE MEDICATIONS: Please see below. ALLERGIES: Please see below. PHYSICAL EXAMINATION ON DISCHARGE: VITAL SIGNS: Please see below. General: Older than stated age appearing well nourished male laying in bed in no apparent distress HEENT: EOMI. CN V, VII, II, IX, X appear normal. Conjunctiva normal CV: RRR, No murmurs, rubs, gallops noted Respiratory: Lungs CTA B/L. No wheezing, rales, rhonchi Abdomen: Obese abdomen. No organomegaly noted. No bruising or discolorations. Extremities: No extremity edema. Pulses equal and normal in all four extremiti es. Neuro: No FND. Muscle strength 5/5 in all extremities but cannot test R should due to unrelated shoulder pain. CNII-XII intact. AA X3. Dysmetria on finger to nose testing with a possible intention tremor R>L LABORATORY DATA: Please see below. IMAGING: CXR 12/06/2019: There is no acute cardiopulmonary disease Vascular US 12/06/2019: Mild noncalcific plaque in the distal CCA is and proximal ICAs bilaterally resulting in a mild Stenosis well in the 50% using SRU criteria. Normal directional flow in the vertebral a a arteries. Brain MRI 12/07/2019: There is severe stenosis of the right middle cerebral artery and marked decrease in the number of right middle cerebral branches. Numerous areas old ischemic change throughout the basal ganglia region which is much greater on the right. Area of increased density left basal ganglia region may be calcification but recommend CT scan without and with contrast clarification and to exclude pathology Head CT 12/08/2019: No acute intracranial hemorrhage or edema. Chronic changes PROGNOSIS: Fair ACTIVITY: [As tolerated]. DIET: as tolerated DISCHARGE PLAN: 1.Please take medications as prescribed 2. Please follow up with neurology in 7-10 days DISCHARGE CONDITION: [Stable]. TIME SPENT ON DISCHARGE: 35 minutes. I have personally evaluated and examined the patient. Discussed with resident/student regarding plan of care and agree with the above assessment and plan. Vital Signs/I&Os Vital Signs Date Time Temp Pulse Resp B/P (MAP) Pulse Ox O2 Delivery O2 Flow Rate FiO2 12/09/19 09:34 77 142/82 12/09/19 08:00 96.6 16 98 Room Air I&O- Last 24 Hours up to 6 AM 12/09/19 06:00 Intake Total 720 ml Output Total 75 ml Balance 645 ml Laboratory Data Labs 24H Laboratory Tests 2 12/09/19 04:53: Nucleated Red Blood Cells % (auto) 0.0, Anion Gap 9, Glomerular Filtration Rate > 60.0, Calcium Level 8.7L CBC/BMP Laboratory Tests 12/09/19 04:53 Discharge Medications Scheduled Amlodipine Besylate (Amlodipine Besylate) 10 Mg Tablet, 10 MG PO DAILY Aspirin (Children's Aspirin) 81 Mg Tab.chew, 81 MG PO DAILY Atorvastatin Calcium (Atorvastatin Calcium) 40 Mg Tablet, 40 MG PO QPM Budesonide/Formoterol (Symbicort 160-4.5 Mcg Inhaler) 60 Puff/Inhaler Aers, 2 PUFFS INH BID, (Reported) Bupropion HCl (Bupropion Xl) 150 Mg Tab.er.24h, 150 MG PO DAILY, (Reported) Cholecalciferol (Vitamin D3) (Vitamin D3) 1,000 Unit Tablet, 4,000 UNITS PO DAILY, (Reported) Clopidogrel Bisulfate (Clopidogrel) 75 Mg Tablet, 75 MG PO DAILY Pantoprazole Sodium (Pantoprazole Sodium) 20 Mg Tablet.dr, 20 MG PO DAILY, (Reported) Tiotropium [place] (Spiriva) 18 Mcg Cap, 18 MCG INH DAILY, (Reported) Scheduled PRN Albuterol Sulf (Albuterol Sulfate) 2.5 Mg/3 Ml Vial.neb, 2.5 MG INH Q6H PRN for SHORTNESS OF BREATH, (Reported) Albuterol Sulfate (Proair Hfa) 8.5 Gm Hfa.aer.ad, 2 PUFF INH QID PRN for SHORTNESS OF BREATH, (Reported) Allergies Coded Allergies: No Known Allergies (Unverified , 12/06/19) WAQAR MERCADO OMS-3 Dec 09, 2019 12:44 CLOVIS GORDILLO MD Dec 09, 2019 18:23
== END 2019-12-09 15:00 | disposition home or self-care (01) | DRG 65 ==
LOC: M ED 17:20 → M ED INP 18:36 → ENRESERV 19:00 → M PCU 20:23
PROVIDERS: ADMIT General Practice; ATTEND General Practice
DX: I63.9 Cerebral infarction, unspecified (principal); F10.239 Alcohol dependence with withdrawal, unspecified; J44.9 Chronic obstructive pulmonary disease, unspecified; I10 Essential (primary) hypertension; K21.9 Gastro-esophageal reflux disease without esophagitis; E55.9 Vitamin D deficiency, unspecified; F32.9 Major depressive disorder, single episode, unspecified; F17.200 Nicotine dependence, unspecified, uncomplicated; Z79.82 Long term (current) use of aspirin; Z79.899 Other long term (current) drug therapy

== ENCOUNTER → 2020-01-21 | Outpatient (REF) | payer MEDICARE ==
[~2020-01-21] MED LIST changes: +ALBU83IN INH; +AMLO1TAB25 PO; +ASPI81CH8 PO; +ATOR40TA75 PO; +BUPR-332 PO; +CLOP75TA2 PO; +D31000TA2 PO; +PANT20TA6 PO; +PROAAER10 INH
[2020-01-21 14:40] LABS: BASO # 0.1 10^3/uL (0.0-0.2); BASO % 1.2 % (0.0-1.0); EOS # 0.1 10^3/uL (0.0-0.5); HEMATOCRIT 47.4 % (42.0-52.0); HEMOGLOBIN 15.7 g/dl (13.5-17.5); LYMPH # 1.6 10^3/uL (1.5-5.0); LYMPH % 18.6 % (24.0-44.0); MEAN CORPUSCULAR HEMOGLOBIN 31.7 pg (27.0-33.0); MEAN CORPUSCULAR HGB CONC 33.1 g/dl (32.0-36.5); MEAN CORPUSCULAR VOLUME 95.8 fl (80.0-96.0); MONO # 0.9 10^3/uL (0.0-0.8); MONO % 9.9 % (0.0-5.0); NEUTROPHILS % 68.7 % (36.0-66.0); PLATELET COUNT, AUTOMATED 477 10^3/uL (150-450); RED BLOOD COUNT 4.95 10^6/uL (4.30-6.10); WHITE BLOOD COUNT 8.7 10^3/uL (4.0-10.0)
[2020-01-21 14:49] LABS: ALBUMIN 3.6 GM/DL (3.2-5.2); ALT/SGPT 44 U/L (12-78); BILIRUBIN,TOTAL 0.4 MG/DL (0.2-1.0); BLOOD UREA NITROGEN 12 MG/DL (7-18); CALCIUM LEVEL 9.6 MG/DL (8.8-10.2); CARBON DIOXIDE LEVEL 26 MEQ/L (21-32); CHLORIDE LEVEL 104 MEQ/L (98-107); CHOLESTEROL LEVEL 135 MG/DL (<200); CHOLESTEROL RISK RATIO 2.755 (<5); CPK CREATINE PHOSPHOKINASE 139 U/L (39-308); CREATININE FOR GFR 0.89 MG/DL (0.70-1.30); GLOMERULAR FILTRATION RATE > 60.0 (>49); GLUCOSE, FASTING 90 MG/DL (70-100); HDL CHOLESTEROL 49 MG/DL (>40); LDL CHOLESTEROL 70 MG/DL (<100); MAGNESIUM LEVEL 1.9 MG/DL (1.8-2.4); NON-HDL-C 86 MG/DL; POTASSIUM SERUM 4.6 MEQ/L (3.5-5.1); SODIUM LEVEL 136 MEQ/L (136-145); THYROID STIMULATING HORMONE 0.803 uIU/ML (0.358-3.740); TOTAL PROTEIN 7.5 GM/DL (6.4-8.2); TRIGLYCERIDES LEVEL 79 MG/DL (<150)
== END ==
LOC: M LABDRWAD 12:59
PROVIDERS: ATTEND Internal Medicine
DX: I10 Essential (primary) hypertension (principal); E78.00 Pure hypercholesterolemia, unspecified; F10.99 Alcohol use, unspecified with unspecified alcohol-induced disorder; E87.1 Hypo-osmolality and hyponatremia

== ENCOUNTER → 2020-04-06 | Outpatient (CLI) | payer MEDICARE ==
--- NOTE | 2020-04-06 12:05 | REP ---
INDICATION: NICOTINE DEPENDENCE. COMPARISON: CT 04/08/2019, low-dose CT 10/02/2016 TECHNIQUE: Low-dose lung screening CT protocol FINDINGS: The subpleural right upper lobe nodule at 4 mm size is unchanged from the 2 previous studies some minor curvilinear fibrotic change peripherally in the right lower lobe. There is new pleural based 3.4 mm nodule in the posterior basal segment of the right lower lobe in the deep sulcus. I see no pleural effusion, other nodules, acute infiltrates or masses. There is some cylindrical bronchiectasis. Bone windows show some degenerative changes in the spine without definite destructive lesion. Heart size not enlarged. IMPRESSION: Lung rads category 2 benign, benign findings. Stable right upper lobe peripheral solid nodule and new sub 4 mm solid nodule in the right lower lobe. Patients with this category of findings have a less than 1% chance of malignancy at the time of the examination. Recommendation for continual annual screening with low-dose CT in 12 months for patients at high risk of malignancy. <Electronically signed by Gen Servin > 04/06/20 [id number]
== END ==
LOC: M RAD 10:15
PROVIDERS: ATTEND Internal Medicine Pulmonary Disease
DX: Z12.2 Encounter for screening for malignant neoplasm of respiratory organs (principal); F17.218 Nicotine dependence, cigarettes, with other nicotine-induced disorders; R91.8 Other nonspecific abnormal finding of lung field

== ENCOUNTER → 2020-04-06 | Outpatient (REF) | payer MEDICARE ==
[2020-04-06 16:44] LABS: APPEARANCE, URINE CLEAR (CLEAR); BACTERIA, URINE AUTO NEGATIVE (NEGATIVE); BILIRUBIN, URINE AUTO NEGATIVE (NEGATIVE); BLOOD, URINE BLOOD NEGATIVE (NEGATIVE); COLOR, URINE YELLOW (YELLOW); GLUCOSE, URINE (UA) AUTO NEGATIVE (NEGATIVE); KETONE, URINE AUTO TRACE mg/dL (NEGATIVE); LEUKOCYTE ESTERASE, URINE AUTO NEGATIVE (NEGATIVE); MUCUS, URINE SMALL (NEGATIVE); NITRITE, URINE AUTO NEGATIVE (NEGATIVE); PROTEIN, URINE AUTO NEGATIVE (NEGATIVE); RBC, URINE AUTO 0 /HPF (0-3); SPECIFIC GRAVITY URINE AUTO 1.025 (1.002-1.035); SQUAMOUS EPITHELIAL CELL UR AU 0 /HPF (0-6); UROBILINOGEN, URINE AUTO 0.2 mg/dL (0.0-2.0); WBC, URINE AUTO 0 /HPF (0-3)
[2020-04-06 16:46] LABS: BASO # 0.1 10^3/uL (0.0-0.2); BASO % 0.9 % (0.0-1.0); EOS # 0.1 10^3/uL (0.0-0.5); EOS % 0.9 % (0.0-3.0); HEMATOCRIT 45.1 % (42.0-52.0); HEMOGLOBIN 14.6 g/dl (13.5-17.5); LYMPH # 2.1 10^3/uL (1.5-5.0); LYMPH % 18.9 % (24.0-44.0); MEAN CORPUSCULAR HEMOGLOBIN 29.9 pg (27.0-33.0); MEAN CORPUSCULAR HGB CONC 32.4 g/dl (32.0-36.5); MEAN CORPUSCULAR VOLUME 92.2 fl (80.0-96.0); MONO # 1.3 10^3/uL (0.0-0.8); MONO % 11.1 % (0.0-5.0); NEUTROPHILS # 7.7 10^3/uL (1.5-8.5); NEUTROPHILS % 67.8 % (36.0-66.0); PLATELET COUNT, AUTOMATED 397 10^3/uL (150-450); RED BLOOD COUNT 4.89 10^6/uL (4.30-6.10); WHITE BLOOD COUNT 11.4 10^3/uL (4.0-10.0)
[2020-04-06 17:15] LABS: ALBUMIN 3.7 GM/DL (3.2-5.2); ALT/SGPT 43 U/L (12-78); BILIRUBIN,TOTAL 0.4 MG/DL (0.2-1.0); BLOOD UREA NITROGEN 14 MG/DL (7-18); CALCIUM LEVEL 9.6 MG/DL (8.8-10.2); CARBON DIOXIDE LEVEL 26 MEQ/L (21-32); CHLORIDE LEVEL 102 MEQ/L (98-107); CREATININE FOR GFR 0.94 MG/DL (0.70-1.30); GLOMERULAR FILTRATION RATE > 60.0 (>49); GLUCOSE, FASTING 79 MG/DL (70-100); MAGNESIUM LEVEL 1.9 MG/DL (1.8-2.4); POTASSIUM SERUM 4.8 MEQ/L (3.5-5.1); SODIUM LEVEL 136 MEQ/L (136-145); TOTAL PROTEIN 7.4 GM/DL (6.4-8.2)
== END ==
LOC: M LABDRWAD 16:24
PROVIDERS: ATTEND Internal Medicine
DX: R73.09 Other abnormal glucose (principal); I10 Essential (primary) hypertension

== ENCOUNTER → 2020-05-12 | Outpatient (CLI) | payer MEDICARE | LOC: M LABSMTC 12:03 | PROVIDERS: ATTEND Anesthesiology | DX: Z01.812 Encounter for preprocedural laboratory examination (principal); Z20.828 Contact with and (suspected) exposure to other viral communicable diseases ==

== ENCOUNTER 2020-05-17 12:50 | Day surgery (SDC) | payer MEDICARE ==
[~2020-05-17] VITALS: Ht 175.3 cm; Wt 54.0 kg
[~2020-05-17 12:50] MED LIST changes: +LIDOCAINE 2% 100MG/5ML SDV (FOR ANES.) As Ordered ONE; +LR 1,000 ML IV ONE; +MIDAZOLAM INJ 2MG/2ML VIAL (J2250 PER 1MG) As Ordered ONE; +ONDANSETRON 4MG/2ML VIAL As Ordered ONE; +ceFAZolin SOD 1 GM in D5W MINI-BAG PLUS 50 ML IV ONE; +dexameTHASONE 4 MG/ML 1ML VIAL (J1100 PER 1MG) As Ordered ONE; +fentaNYL 100 MCG/2 ML INJECTION (J3010) As Ordered ONE; +propofoL 500 MG/50 ML VIAL As Ordered ONE
[2020-05-17] MEDS ORDERED: ECOT81TA5 PO (13:28)
[2020-05-17] MEDS ORDERED: LIDOCAINE 1% SDV 30ML VIAL As Ordered ONE (13:35)
[2020-05-17 16:10] VITALS: BP 150/71
--- NOTE | 2020-05-18 09:18 | RO ---
OPERATIVE NOTE DATE OF OPERATION: 05/17/2020 PREOPERATIVE DIAGNOSIS: Unexplained syncope. POSTOPERATIVE DIAGNOSIS: Unexplained syncope. FINDINGS: Unexplained syncope. PROCEDURE PERFORMED: Implantation of a subcutaneous cardiac rhythm monitor. SURGEON: Tj Covington M.D. BURNISHING MACHINE OPERATOR: None. ANESTHESIA: Lidocaine 1% - monitored anesthesia care. SPECIMENS: None. ESTIMATED BLOOD LOSS: Less than 1 mL. BLOOD PRODUCTS: None placed. DRAINS: None. COMPLICATIONS: None. DESCRIPTION OF PROCEDURE: The patient was prepped and draped over the sternum and left anterior chest. Lidocaine 1% was used for local anesthetic. An incision of approximately 1 cm in length was made with a #15 blade through the skin at the left interspace about 1 inch lateral to the left parasternal border. The guide on the insertion tube was then placed into the incision and advanced in the subcutaneous tissue parallel to the anterior chest wall in a left lateral-caudal direction. The insertion tube was rotated 180 degrees and then the plunger was used to advance the implantable loop recorder into the subcutaneous tissue. The plunger was removed and then, the insertion tube was removed leaving the loop recorder behind. The initial R-wave amplitude measured 0.59 mV. The skin was then approximated temporarily using a 4-0 Biosyn suture placed subcuticular with the suture material protruding 1 cm from either end of the incision. Next, three layers of Dermabond was applied and then, the 4-0 Biosyn suture was pulled through the incision line and removed. The patient tolerated the procedure well without any immediate complications. IMPLANT: The implantable loop recorder implanted was a Fanminder Reveal LINQ; Model LNQ11 with serial No. [id number]. Darrius Baez M.D. Dejah Mcdonald M.D.
== END 2020-05-17 16:15 | disposition home or self-care (01) ==
LOC: M SDC 12:50
PROVIDERS: ATTEND Internal Medicine Cardiovascular Disease
DX: R55 Syncope and collapse (principal); I10 Essential (primary) hypertension; I25.10 Atherosclerotic heart disease of native coronary artery without angina pectoris; I63.9 Cerebral infarction, unspecified; I67.2 Cerebral atherosclerosis; I65.23 Occlusion and stenosis of bilateral carotid arteries; E78.00 Pure hypercholesterolemia, unspecified; F17.210 Nicotine dependence, cigarettes, uncomplicated; F10.20 Alcohol dependence, uncomplicated; J44.9 Chronic obstructive pulmonary disease, unspecified; K21.9 Gastro-esophageal reflux disease without esophagitis; M54.9 Dorsalgia, unspecified; Z79.82 Long term (current) use of aspirin; Z79.899 Other long term (current) drug therapy
CPT/HCPCS: 33285; C1764; J0690; J1100; J2250; J2405; J3010

== ENCOUNTER → 2020-08-07 | Outpatient (REF) | payer MEDICARE ==
[~2020-08-07] MED LIST changes: +ECOT81TA5 PO; -LIDOCAINE 2% 100MG/5ML SDV (FOR ANES.) As Ordered ONE; +LISI10TA22 PO; -LISI10TA4 PO; -LR 1,000 ML IV ONE; -MIDAZOLAM INJ 2MG/2ML VIAL (J2250 PER 1MG) As Ordered ONE; -ONDANSETRON 4MG/2ML VIAL As Ordered ONE; -ceFAZolin SOD 1 GM in D5W MINI-BAG PLUS 50 ML IV ONE; -dexameTHASONE 4 MG/ML 1ML VIAL (J1100 PER 1MG) As Ordered ONE; -fentaNYL 100 MCG/2 ML INJECTION (J3010) As Ordered ONE; -propofoL 500 MG/50 ML VIAL As Ordered ONE
[2020-08-07 12:42] LABS: BASO # 0.1 10^3/uL (0.0-0.2); BASO % 0.7 % (0.0-1.0); EOS # 0.1 10^3/uL (0.0-0.5); EOS % 0.6 % (0.0-3.0); HEMATOCRIT 45.1 % (42.0-52.0); HEMOGLOBIN 14.6 g/dl (13.5-17.5); LYMPH # 1.8 10^3/uL (1.5-5.0); LYMPH % 19.6 % (24.0-44.0); MEAN CORPUSCULAR HEMOGLOBIN 29.1 pg (27.0-33.0); MEAN CORPUSCULAR HGB CONC 32.4 g/dl (32.0-36.5); MEAN CORPUSCULAR VOLUME 89.8 fl (80.0-96.0); MONO # 0.8 10^3/uL (0.0-0.8); MONO % 8.4 % (2.0-8.0); NEUTROPHILS # 6.6 10^3/uL (1.5-8.5); NEUTROPHILS % 70.3 % (36.0-66.0); PLATELET COUNT, AUTOMATED 389 10^3/uL (150-450); RED BLOOD COUNT 5.02 10^6/uL (4.30-6.10); WHITE BLOOD COUNT 9.4 10^3/uL (4.0-10.0)
[2020-08-07 13:12] LABS: ALBUMIN 3.9 GM/DL (3.2-5.2); ALT/SGPT 42 U/L (12-78); BILIRUBIN,TOTAL 0.4 MG/DL (0.2-1.0); BLOOD UREA NITROGEN 17 MG/DL (7-18); CALCIUM LEVEL 9.4 MG/DL (8.8-10.2); CARBON DIOXIDE LEVEL 25 MEQ/L (21-32); CHLORIDE LEVEL 103 MEQ/L (98-107); CREATININE FOR GFR 0.86 MG/DL (0.70-1.30); GLOMERULAR FILTRATION RATE > 60.0 (>49); GLUCOSE, FASTING 103 MG/DL (70-100); POTASSIUM SERUM 4.3 MEQ/L (3.5-5.1); SODIUM LEVEL 135 MEQ/L (136-145); THYROID STIMULATING HORMONE 0.545 uIU/ML (0.358-3.740); TOTAL PROTEIN 7.7 GM/DL (6.4-8.2)
== END ==
LOC: M LABDRWAD 12:27
PROVIDERS: ATTEND Internal Medicine
DX: I10 Essential (primary) hypertension (principal); R42 Dizziness and giddiness; Z13.89 Encounter for screening for other disorder

== ENCOUNTER → 2020-11-13 | Outpatient (REF) | payer MEDICARE ==
[2020-11-13 13:19] LABS: ALBUMIN 3.7 GM/DL (3.2-5.2); ALT/SGPT 41 U/L (12-78); BILIRUBIN,TOTAL 0.4 MG/DL (0.2-1.0); BLOOD UREA NITROGEN 14 MG/DL (7-18); CALCIUM LEVEL 9.5 MG/DL (8.8-10.2); CARBON DIOXIDE LEVEL 26 MEQ/L (21-32); CHLORIDE LEVEL 107 MEQ/L (98-107); CREATININE FOR GFR 0.88 MG/DL (0.70-1.30); GLOMERULAR FILTRATION RATE > 60.0 (>49); GLUCOSE, FASTING 105 MG/DL (70-100); POTASSIUM SERUM 4.4 MEQ/L (3.5-5.1); SODIUM LEVEL 138 MEQ/L (136-145); TOTAL PROTEIN 7.5 GM/DL (6.4-8.2)
== END ==
LOC: M LABDRWAD 12:21
PROVIDERS: ATTEND Internal Medicine
DX: I10 Essential (primary) hypertension (principal)

== ENCOUNTER → 2021-01-09 | Outpatient (CLI) | payer MEDICARE ==
--- NOTE | 2021-01-09 09:33 | REP ---
INDICATION: COUGH,WHEEZE,SOB COMPARISON: 08/24/2014. 12/06/2019. TECHNIQUE: PA/Lateral FINDINGS: Lungs: Clear, no infiltrate. Heart: Normal in size. Mediastinum: Mediastinal silhouette unremarkable. Pleural angles: Unremarkable.. Bones and soft tissues: There are degenerative changes of the spine without compression deformity. IMPRESSION: No acute pulmonary disease. <Electronically signed by Sid Melendez > 01/09/21 [id number]
== END ==
LOC: M ADAMS 08:36
PROVIDERS: ATTEND Internal Medicine Pulmonary Disease
DX: R05 Cough (principal); R06.02 Shortness of breath; R06.2 Wheezing

== ENCOUNTER → 2021-01-09 | Outpatient (REF) | payer MEDICARE | LOC: M LAB REF 12:14 | PROVIDERS: ATTEND Internal Medicine Pulmonary Disease | DX: J44.1 Chronic obstructive pulmonary disease with (acute) exacerbation (principal) ==

== ENCOUNTER → 2021-02-19 | Outpatient (REF) | payer MEDICARE ==
[2021-02-19 15:55] LABS: BASO # 0.1 10^3/uL (0.0-0.2); BASO % 1.1 % (0.0-1.0); EOS # 0.1 10^3/uL (0.0-0.5); EOS % 1.2 % (0.0-3.0); HEMATOCRIT 49.3 % (42.0-52.0); LYMPH % 23.7 % (24.0-44.0); MEAN CORPUSCULAR HEMOGLOBIN 30.8 pg (27.0-33.0); MEAN CORPUSCULAR HGB CONC 32.5 g/dl (32.0-36.5); NEUTROPHILS # 5.3 10^3/uL (1.5-8.5); NEUTROPHILS % 61.6 % (36.0-66.0); PLATELET COUNT, AUTOMATED 414 10^3/uL (150-450); RED BLOOD COUNT 5.19 10^6/uL (4.30-6.10); WHITE BLOOD COUNT 8.6 10^3/uL (4.0-10.0)
[2021-02-19 16:22] LABS: ALBUMIN 3.9 GM/DL (3.2-5.2); ALT/SGPT 43 U/L (12-78); BILIRUBIN,TOTAL 0.4 MG/DL (0.2-1.0); BLOOD UREA NITROGEN 14 MG/DL (7-18); CALCIUM LEVEL 9.9 MG/DL (8.8-10.2); CARBON DIOXIDE LEVEL 28 MEQ/L (21-32); CHLORIDE LEVEL 108 MEQ/L (98-107); CREATININE FOR GFR 0.95 MG/DL (0.70-1.30); GLOMERULAR FILTRATION RATE > 60.0 (>49); GLUCOSE, FASTING 90 MG/DL (70-100); POTASSIUM SERUM 4.9 MEQ/L (3.5-5.1); SODIUM LEVEL 141 MEQ/L (136-145); TOTAL PROTEIN 7.8 GM/DL (6.4-8.2)
== END ==
LOC: M LABDRWAD 14:43
PROVIDERS: ATTEND Internal Medicine
DX: I10 Essential (primary) hypertension (principal); E78.00 Pure hypercholesterolemia, unspecified

== ENCOUNTER → 2021-03-30 | Outpatient (REF) | payer MEDICARE ==
[2021-03-30 14:04] LABS: BLOOD UREA NITROGEN 12 MG/DL (7-18); CALCIUM LEVEL 9.6 MG/DL (8.8-10.2); CARBON DIOXIDE LEVEL 26 MEQ/L (21-32); CHLORIDE LEVEL 101 MEQ/L (98-107); CREATININE FOR GFR 1.04 MG/DL (0.70-1.30); GLOMERULAR FILTRATION RATE > 60.0 (>49); GLUCOSE, FASTING 92 MG/DL (70-100); MAGNESIUM LEVEL 1.8 MG/DL (1.8-2.4); POTASSIUM SERUM 4.6 MEQ/L (3.5-5.1); SODIUM LEVEL 136 MEQ/L (136-145)
== END ==
LOC: M LABDRWAD 12:15
PROVIDERS: ATTEND Internal Medicine
DX: I10 Essential (primary) hypertension (principal)

== ENCOUNTER → 2021-04-24 | Outpatient (CLI) | payer MEDICARE | LOC: M RAD 10:02 | PROVIDERS: ATTEND Internal Medicine Pulmonary Disease | DX: Z12.2 Encounter for screening for malignant neoplasm of respiratory organs (principal); F17.218 Nicotine dependence, cigarettes, with other nicotine-induced disorders ==

== ENCOUNTER → 2021-07-30 | Outpatient (REF) | payer MEDICARE ==
[~2021-07-30] MED LIST changes: -D31000TA2 PO; +VITA100093 PO
[2021-07-30 13:16] LABS: BASO # 0.1 10^3/uL (0.0-0.2); EOS # 0.2 10^3/uL (0.0-0.5); EOS % 1.9 % (0.0-3.0); HEMATOCRIT 46.4 % (42.0-52.0); HEMOGLOBIN 15.6 g/dl (13.5-17.5); LYMPH % 22.4 % (24.0-44.0); MEAN CORPUSCULAR HEMOGLOBIN 30.1 pg (27.0-33.0); MEAN CORPUSCULAR HGB CONC 33.6 g/dl (32.0-36.5); MEAN CORPUSCULAR VOLUME 89.4 fl (80.0-96.0); MONO # 0.9 10^3/uL (0.0-0.8); MONO % 10.2 % (2.0-8.0); NEUTROPHILS # 5.8 10^3/uL (1.5-8.5); NEUTROPHILS % 64.1 % (36.0-66.0); PLATELET COUNT, AUTOMATED 389 10^3/uL (150-450); RED BLOOD COUNT 5.19 10^6/uL (4.30-6.10)
[2021-07-30 13:55] LABS: ALBUMIN 3.6 GM/DL (3.2-5.2); ALT/SGPT 27 U/L (12-78); BILIRUBIN,TOTAL 0.4 MG/DL (0.2-1.0); BLOOD UREA NITROGEN 15 MG/DL (7-18); CALCIUM LEVEL 9.4 MG/DL (8.8-10.2); CARBON DIOXIDE LEVEL 23 MEQ/L (21-32); CHLORIDE LEVEL 106 MEQ/L (98-107); CHOLESTEROL LEVEL 140 MG/DL (<200); CHOLESTEROL RISK RATIO 3.684 (<5); CREATININE FOR GFR 0.93 MG/DL (0.70-1.30); FREE THYROXINE INDEX 2.6 % (1.4-3.8); GLOMERULAR FILTRATION RATE > 60.0 (>49); GLUCOSE, FASTING 95 MG/DL (70-100); HDL CHOLESTEROL 38 MG/DL (>40); LDL CHOLESTEROL 80 MG/DL (<100); NON-HDL-C 102 MG/DL; POTASSIUM SERUM 4.7 MEQ/L (3.5-5.1); SODIUM LEVEL 136 MEQ/L (136-145); T UPTAKE 30 % (33-40); THYROID STIMULATING HORMONE 0.928 uIU/ML (0.358-3.740); THYROXINE (T4) 8.7 UG/DL (4.5-12.0); TOTAL PROTEIN 7.4 GM/DL (6.4-8.2); TRIGLYCERIDES LEVEL 111 MG/DL (<150)
[2021-07-31 23:12] LABS: PSA TOTAL 0.3 ng/mL (0.0-4.0)
== END ==
LOC: M LABDRWAD 12:42
PROVIDERS: ATTEND Internal Medicine
DX: R74.8 Abnormal levels of other serum enzymes (principal); I10 Essential (primary) hypertension; E78.00 Pure hypercholesterolemia, unspecified; Z12.5 Encounter for screening for malignant neoplasm of prostate; R97.20 Elevated prostate specific antigen [PSA]

== ENCOUNTER → 2021-11-02 | Outpatient (CLI) | payer MEDICARE ==
[~2021-11-02] MED LIST changes: +ALBU2.5V10 INH; -ALBU83IN INH
[2021-11-02 12:53] LABS: HEMATOCRIT 47.8 % (42.0-52.0); MEAN CORPUSCULAR HGB CONC 33.5 g/dl (32.0-36.5); MEAN CORPUSCULAR VOLUME 92.6 fl (80.0-96.0); PLATELET COUNT, AUTOMATED 333 10^3/uL (150-450); RED BLOOD COUNT 5.16 10^6/uL (4.30-6.10); WHITE BLOOD COUNT 8.3 10^3/uL (4.0-10.0)
[2021-11-02 13:59] LABS: ALBUMIN 3.8 GM/DL (3.2-5.2); ALT/SGPT 27 U/L (12-78); BILIRUBIN,TOTAL 0.5 MG/DL (0.2-1.0); BLOOD UREA NITROGEN 11 MG/DL (7-18); CALCIUM LEVEL 9.8 MG/DL (8.8-10.2); CARBON DIOXIDE LEVEL 24 MEQ/L (21-32); CHLORIDE LEVEL 106 MEQ/L (98-107); CREATININE FOR GFR 0.93 MG/DL (0.70-1.30); GLOMERULAR FILTRATION RATE > 60.0 (>49); GLUCOSE, FASTING 94 MG/DL (70-100); POTASSIUM SERUM 4.7 MEQ/L (3.5-5.1); SODIUM LEVEL 138 MEQ/L (136-145); TOTAL PROTEIN 7.6 GM/DL (6.4-8.2)
[2021-11-06 09:28] LABS: MAGNESIUM LEVEL 2.1 MG/DL (1.8-2.4)
== END ==
LOC: M ADAMS 09:44
PROVIDERS: ATTEND Internal Medicine
DX: I10 Essential (primary) hypertension (principal); Z13.89 Encounter for screening for other disorder

== ENCOUNTER → 2022-02-15 | Outpatient (CLI) | payer MEDICARE | LOC: M WHC 10:01 | PROVIDERS: ATTEND Internal Medicine | DX: M85.851 Other specified disorders of bone density and structure, right thigh (principal); M85.852 Other specified disorders of bone density and structure, left thigh ==

== ENCOUNTER → 2022-06-10 | Outpatient (REF) | payer MEDICARE ==
[2022-06-10 13:19] LABS: BLOOD UREA NITROGEN 12 MG/DL (9-23); CALCIUM LEVEL 9.1 MG/DL (8.3-10.6); CARBON DIOXIDE LEVEL 26 MMOL/L (20-31); CHLORIDE LEVEL 105 MMOL/L (98-107); CREATININE FOR GFR 0.87 MG/DL (0.70-1.30); GLOMERULAR FILTRATION RATE > 60.0 (>49); GLUCOSE, FASTING 105 MG/DL (74-106); POTASSIUM SERUM 4.3 MMOL/L (3.5-5.1); SODIUM LEVEL 140 MMOL/L (136-145)
== END ==
LOC: M LABDRWAD 12:34
PROVIDERS: ATTEND Internal Medicine
DX: I10 Essential (primary) hypertension (principal)

== ENCOUNTER → 2022-06-26 | Outpatient (CLI) | payer MEDICARE | LOC: M RAD 10:13 | PROVIDERS: ATTEND Internal Medicine Pulmonary Disease | DX: Z12.2 Encounter for screening for malignant neoplasm of respiratory organs (principal); F17.200 Nicotine dependence, unspecified, uncomplicated ==

== ENCOUNTER → 2022-09-26 | Outpatient (REF) | payer MEDICARE ==
[2022-09-26 13:46] LABS: BASO # 0.1 10^3/uL (0.0-0.2); BASO % 0.7 % (0.0-1.0); EOS # 0.1 10^3/uL (0.0-0.5); EOS % 0.8 % (0.0-3.0); HEMOGLOBIN 16.2 g/dl (13.5-17.5); LYMPH # 2.3 10^3/uL (1.5-5.0); LYMPH % 25.2 % (24.0-44.0); MEAN CORPUSCULAR HEMOGLOBIN 31.2 pg (27.0-33.0); MEAN CORPUSCULAR HGB CONC 33.1 g/dl (32.0-36.5); MEAN CORPUSCULAR VOLUME 94.2 fl (80.0-96.0); MONO # 0.9 10^3/uL (0.0-0.8); MONO % 10.1 % (2.0-8.0); NEUTROPHILS # 5.8 10^3/uL (1.5-8.5); NEUTROPHILS % 62.8 % (36.0-66.0); PLATELET COUNT, AUTOMATED 319 10^3/uL (150-450); WHITE BLOOD COUNT 9.2 10^3/uL (4.0-10.0)
[2022-09-26 14:13] LABS: CPK CREATINE PHOSPHOKINASE 126 U/L (46-171)
[2022-09-26 14:14] LABS: ALBUMIN 4.1 G/DL (3.2-5.2); ALKALINE PHOSPHATASE 136 U/L (46-116); ALT/SGPT 42 U/L (7.0-40); AST/SGOT 26 U/L (<34); BILIRUBIN,TOTAL 0.5 MG/DL (0.3-1.2); BLOOD UREA NITROGEN 13 MG/DL (9-23); CALCIUM LEVEL 9.2 MG/DL (8.3-10.6); CARBON DIOXIDE LEVEL 26 MMOL/L (20-31); CHLORIDE LEVEL 103 MMOL/L (98-107); CHOLESTEROL LEVEL 141 MG/DL (<200); CHOLESTEROL RISK RATIO 3.86 (<5); CREATININE FOR GFR 0.85 MG/DL (0.70-1.30); GLOMERULAR FILTRATION RATE > 60.0 (>49); GLUCOSE, FASTING 91 MG/DL (74-106); HDL CHOLESTEROL 36.5 MG/DL (>40); LDL CHOLESTEROL 79.7 MG/DL (<100); MAGNESIUM LEVEL 1.7 MG/DL (1.8-2.4); NON-HDL-C 104.5 MG/DL; SODIUM LEVEL 136 MMOL/L (136-145); TOTAL PROTEIN 7.3 G/DL (5.7-8.2); TRIGLYCERIDES LEVEL 124 MG/DL (<150)
== END ==
LOC: M LABDRWAD 12:48
PROVIDERS: ATTEND Internal Medicine
DX: Z00.00 Encounter for general adult medical examination without abnormal findings (principal); E78.00 Pure hypercholesterolemia, unspecified; I10 Essential (primary) hypertension; K21.9 Gastro-esophageal reflux disease without esophagitis; R73.09 Other abnormal glucose; E87.1 Hypo-osmolality and hyponatremia

== ENCOUNTER → 2023-01-29 | Outpatient (REF) | payer MEDICARE ==
[2023-01-29 16:50] LABS: BASO # 0.1 10^3/uL (0.0-0.2); EOS # 0.1 10^3/uL (0.0-0.5); HEMATOCRIT 45.7 % (42.0-52.0); HEMOGLOBIN 15.2 g/dl (13.5-17.5); LYMPH # 1.7 10^3/uL (1.5-5.0); LYMPH % 23.6 % (24.0-44.0); MEAN CORPUSCULAR HEMOGLOBIN 32.1 pg (27.0-33.0); MEAN CORPUSCULAR HGB CONC 33.3 g/dl (32.0-36.5); MEAN CORPUSCULAR VOLUME 96.6 fl (80.0-96.0); MONO # 0.8 10^3/uL (0.0-0.8); MONO % 11.5 % (2.0-8.0); NEUTROPHILS # 4.6 10^3/uL (1.5-8.5); NEUTROPHILS % 62.5 % (36.0-66.0); PLATELET COUNT, AUTOMATED 304 10^3/uL (150-450); RED BLOOD COUNT 4.73 10^6/uL (4.30-6.10); WHITE BLOOD COUNT 7.3 10^3/uL (4.0-10.0)
[2023-01-29 17:15] LABS: ALBUMIN 4.1 G/DL (3.2-5.2); ALKALINE PHOSPHATASE 100 U/L (46-116); ALT/SGPT 28 U/L (7.0-40); AST/SGOT 17 U/L (<34); BILIRUBIN,TOTAL 0.4 MG/DL (0.3-1.2); BLOOD UREA NITROGEN 13 MG/DL (9-23); CALCIUM LEVEL 9.6 MG/DL (8.3-10.6); CARBON DIOXIDE LEVEL 23 MMOL/L (20-31); CHLORIDE LEVEL 104 MMOL/L (98-107); GLOMERULAR FILTRATION RATE > 60.0 (>49); GLUCOSE, FASTING 93 MG/DL (74-106); MAGNESIUM LEVEL 1.7 MG/DL (1.8-2.4); POTASSIUM SERUM 4.6 MMOL/L (3.5-5.1); SODIUM LEVEL 135 MMOL/L (136-145); TOTAL PROTEIN 7.3 G/DL (5.7-8.2)
== END ==
LOC: M LABDRWAD 15:57
PROVIDERS: ATTEND Internal Medicine
DX: I10 Essential (primary) hypertension (principal)

== ENCOUNTER 2023-02-25 20:34 | Inpatient (IN) | payer MEDICARE ==
[~2023-02-25] VITALS: Ht 180.3 cm; Wt 86.3 kg
[2023-02-25 21:05] LABS: BASO # 0.1 10^3/uL (0.0-0.2); BASO % 0.8 % (0.0-1.0); EOS # 0.1 10^3/uL (0.0-0.5); EOS % 0.9 % (0.0-3.0); HEMATOCRIT 41.9 % (42.0-52.0); HEMOGLOBIN 14.2 g/dl (13.5-17.5); LYMPH % 18.8 % (24.0-44.0); MEAN CORPUSCULAR HEMOGLOBIN 32.9 pg (27.0-33.0); MEAN CORPUSCULAR HGB CONC 33.9 g/dl (32.0-36.5); MONO # 1.1 10^3/uL (0.0-0.8); MONO % 10.7 % (2.0-8.0); NEUTROPHILS # 7.2 10^3/uL (1.5-8.5); NEUTROPHILS % 68.4 % (36.0-66.0); PLATELET COUNT, AUTOMATED 303 10^3/uL (150-450); RED BLOOD COUNT 4.32 10^6/uL (4.30-6.10); WHITE BLOOD COUNT 10.4 10^3/uL (4.0-10.0)
[2023-02-25 21:26] LABS: INR 0.97; PROTHROMBIN TIME 12.6 SECONDS (12.5-14.5)
[2023-02-25 21:29] LABS: CK-MB VALUE MASS 1.6 NG/ML (<3.6)
[2023-02-25 21:31] LABS: CPK CREATINE PHOSPHOKINASE 98 U/L (46-171); MB/CK RELATIVE INDEX 1.63 (< OR =4)
[2023-02-25 21:32] LABS: THYROID STIMULATING HORMONE 0.943 uIU/ML (0.55-4.78)
[2023-02-25 21:33] LABS: FREE T4 1.16 NG/DL (0.89-1.76)
[2023-02-25 21:40] LABS: BLOOD UREA NITROGEN 17 MG/DL (9-23); CARBON DIOXIDE LEVEL 24 MMOL/L (20-31); CHLORIDE LEVEL 104 MMOL/L (98-107); CREATININE FOR GFR 0.94 MG/DL (0.70-1.30); GLOMERULAR FILTRATION RATE > 60.0 (>49); GLUCOSE, FASTING 104 MG/DL (74-106); MAGNESIUM LEVEL 1.9 MG/DL (1.8-2.4); POTASSIUM SERUM 4.4 MMOL/L (3.5-5.1); SODIUM LEVEL 135 MMOL/L (136-145)
[2023-02-25] MEDS ORDERED: NS 500 ML IV ONE (22:25)
[2023-02-25] MEDS ORDERED: MOM 30ML SUSPENSION UDC PO PRN (23:10)
[2023-02-25 23:30] LABS: RSV AMPLIFICATION NEGATIVE (NEGATIVE)
[2023-02-25] MEDS ORDERED: ALBU8.5H INH (23:33)
[2023-02-25] MEDS ORDERED: AMLO1TAB24 PO (23:36)
[2023-02-25] MEDS ORDERED: CLOP75TA99 PO (23:41)
[2023-02-25] MEDS ORDERED: FAMO1TAB11 PO (23:41)
[2023-02-25] MEDS ORDERED: LISI30TA4 PO (23:42)
[2023-02-25] MEDS ORDERED: ATOR40TA75 PO (23:42)
[2023-02-25] MEDS ORDERED: HOME MED LIST COMPLETE! XX SCH (23:45)
[2023-02-25] MEDS ORDERED: ALBUTEROL SULFATE 2.5MG/0.5ML INH NEB SOLN INH PRN (23:50)
[2023-02-26] VITALS (9 sets, daily range): BP systolic 108–156; BP diastolic 57–80; TEMP 97.9–98.2; O2SAT 94–96
[2023-02-26] MEDS ORDERED: TAMSULOSIN 0.4 MG CAP PO ONE (02:00)
[2023-02-26] MEDS: FAMOTIDINE 20 MG TAB PO SCH ×3 (02:01→20:54)
[2023-02-26] MEDS: THIAMINE 100 MG TAB PO SCH ×3 (02:01→20:54)
[2023-02-26] MEDS: ACETAMINOPHEN TAB 650MG DOSE (2X325MG) PO PRN (02:02)
[2023-02-26] MEDS: NS 1,000 ML IV SCH ×2 (02:02→08:23)
[2023-02-26 06:21] LABS: HEMATOCRIT 37.6 % (42.0-52.0); HEMOGLOBIN 12.8 g/dl (13.5-17.5); MEAN CORPUSCULAR HEMOGLOBIN 33.2 pg (27.0-33.0); MEAN CORPUSCULAR VOLUME 97.4 fl (80.0-96.0); PLATELET COUNT, AUTOMATED 250 10^3/uL (150-450); RED BLOOD COUNT 3.86 10^6/uL (4.30-6.10); WHITE BLOOD COUNT 7.3 10^3/uL (4.0-10.0)
[2023-02-26 06:51] LABS: ALBUMIN 3.2 G/DL (3.2-5.2); ALKALINE PHOSPHATASE 97 U/L (46-116); ALT/SGPT 28 U/L (7.0-40); AST/SGOT 15 U/L (<34); BILIRUBIN,TOTAL 0.6 MG/DL (0.3-1.2); BLOOD UREA NITROGEN 13 MG/DL (9-23); CALCIUM LEVEL 8.5 MG/DL (8.3-10.6); CARBON DIOXIDE LEVEL 25 MMOL/L (20-31); CHLORIDE LEVEL 107 MMOL/L (98-107); CREATININE FOR GFR 0.75 MG/DL (0.70-1.30); GLOMERULAR FILTRATION RATE > 60.0 (>49); GLUCOSE, FASTING 104 MG/DL (74-106); POTASSIUM SERUM 4.4 MMOL/L (3.5-5.1); SODIUM LEVEL 138 MMOL/L (136-145); TOTAL PROTEIN 6.1 G/DL (5.7-8.2)
[2023-02-26] MEDS: TIOTROPIUM INHALER/CAPSULE (SPIRIVA) INH SCH (07:19)
[2023-02-26] MEDS: SYMBICORT 160/4.5MCG INHALER 6GM INH SCH ×2 (07:19→20:12)
[2023-02-26] MEDS: CLOPIDOGREL 75 MG TAB PO SCH (08:22)
[2023-02-26] MEDS: buPROPion **XL** TABLET 150MG (WELLBUTRIN XL) PO SCH (08:22)
[2023-02-26] MEDS: ASPIRIN 81MG ENTERIC TABLET PO SCH (08:22)
[2023-02-26] MEDS: DOCUSATE SODIUM 100MG CAPSULE PO SCH ×2 (08:22→20:54)
[2023-02-26] MEDS: ENOXAPARIN 40MG/0.4ML SYRINGE (J1650 PER 10MG) SC SCH (08:23)
[2023-02-26] MEDS ORDERED: MULTIVITAMINS/MINERALS THERAP 1 TAB PO SCH (09:00)
[2023-02-26] MEDS ORDERED: FOLIC ACID 1MG TAB PO SCH (09:00)
[2023-02-26] MEDS: amLODIPine 5 MG TAB PO SCH (09:04)
[2023-02-26] MEDS: LORazepam 2 MG TAB PO PRN ×2 (16:34→20:54)
[2023-02-26] MEDS: ATORVASTATIN 20 MG TAB PO SCH (22:59)
[2023-02-26] MEDS: OXAZEPAM 10MG CAP PO SCH ×2 (22:59→23:07)
[2023-02-26] MEDS ORDERED: LORazepam 2 MG/ML 1ML VIAL As Ordered ONE (23:29)
[2023-02-26] MEDS ORDERED: LORazepam 2 MG/ML 1ML VIAL IV ONE (23:30)
[2023-02-27] VITALS (26 sets, daily range): BP systolic 113–176; BP diastolic 62–100; TEMP 96.3–98; O2SAT 95–98
[2023-02-27] MEDS: LORazepam 2 MG/ML 1ML VIAL IV PRN ×10 (00:02→16:38)
[2023-02-27] MEDS: OXAZEPAM 10MG CAP PO SCH ×3 (05:19→21:43)
[2023-02-27 05:26] LABS: HEMATOCRIT 38.5 % (42.0-52.0); HEMOGLOBIN 12.9 g/dl (13.5-17.5); MEAN CORPUSCULAR HGB CONC 33.5 g/dl (32.0-36.5); MEAN CORPUSCULAR VOLUME 98.5 fl (80.0-96.0); PLATELET COUNT, AUTOMATED 235 10^3/uL (150-450); RED BLOOD COUNT 3.91 10^6/uL (4.30-6.10); WHITE BLOOD COUNT 8.2 10^3/uL (4.0-10.0)
[2023-02-27 05:52] LABS: ALBUMIN 3.3 G/DL (3.2-5.2); ALKALINE PHOSPHATASE 106 U/L (46-116); ALT/SGPT 22 U/L (7.0-40); AST/SGOT 18 U/L (<34); BILIRUBIN,TOTAL 0.5 MG/DL (0.3-1.2); BLOOD UREA NITROGEN 8 MG/DL (9-23); CARBON DIOXIDE LEVEL 26 MMOL/L (20-31); CHLORIDE LEVEL 109 MMOL/L (98-107); CREATININE FOR GFR 0.78 MG/DL (0.70-1.30); GLOMERULAR FILTRATION RATE > 60.0 (>49); GLUCOSE, FASTING 103 MG/DL (74-106); POTASSIUM SERUM 4.1 MMOL/L (3.5-5.1); SODIUM LEVEL 140 MMOL/L (136-145); TOTAL PROTEIN 6.3 G/DL (5.7-8.2)
[2023-02-27] MEDS ORDERED: OXAZEPAM 10MG CAP PO ONE (09:35)
[2023-02-27] MEDS: SYMBICORT 160/4.5MCG INHALER 6GM INH SCH ×2 (09:57→20:00)
[2023-02-27] MEDS: TIOTROPIUM INHALER/CAPSULE (SPIRIVA) INH SCH (09:57)
[2023-02-27] MEDS: DOCUSATE SODIUM 100MG CAPSULE PO SCH ×2 (11:22→21:00)
[2023-02-27] MEDS: ASPIRIN 81MG ENTERIC TABLET PO SCH (11:22)
[2023-02-27] MEDS: amLODIPine 5 MG TAB PO SCH (11:23)
[2023-02-27] MEDS: FAMOTIDINE 20 MG TAB PO SCH ×2 (11:23→21:00)
[2023-02-27] MEDS: CLOPIDOGREL 75 MG TAB PO SCH (11:23)
[2023-02-27] MEDS: buPROPion **XL** TABLET 150MG (WELLBUTRIN XL) PO SCH (11:23)
[2023-02-27] MEDS: ENOXAPARIN 40MG/0.4ML SYRINGE (J1650 PER 10MG) SC SCH (11:23)
[2023-02-27] MEDS ORDERED: MULTIVITAMIN -ADULT INJECTION 10 ML, THIAMINE INJection 100 MG, FOLIC ACID 1 MG in NS 1... IV ONE (13:00)
[2023-02-27] MEDS ORDERED: LORazepam 2 MG/ML 1ML VIAL IV STA (13:59)
[2023-02-27] MEDS ORDERED: dexmedeTOMIDine (4MCG/ML)200MCG/50ML BTL (PRECEDEX) As Ordered ONE (16:54)
[2023-02-27] MEDS: dexmedeTOMidine 200 MCG in IV 1 EA IV SCH ×2 (17:18→23:13)
[2023-02-27] MEDS: ATORVASTATIN 20 MG TAB PO SCH (21:00)
[2023-02-28] VITALS (19 sets, daily range): BP systolic 101–170; BP diastolic 58–80; TEMP 96.5–98.7; O2SAT 92–97
[2023-02-28 05:19] LABS: HEMATOCRIT 41.4 % (42.0-52.0); HEMOGLOBIN 13.9 g/dl (13.5-17.5); MEAN CORPUSCULAR HEMOGLOBIN 33.1 pg (27.0-33.0); MEAN CORPUSCULAR HGB CONC 33.6 g/dl (32.0-36.5); MEAN CORPUSCULAR VOLUME 98.6 fl (80.0-96.0); PLATELET COUNT, AUTOMATED 239 10^3/uL (150-450); WHITE BLOOD COUNT 12.8 10^3/uL (4.0-10.0)
[2023-02-28] MEDS: OXAZEPAM 10MG CAP PO SCH ×3 (05:22→21:55)
[2023-02-28 05:49] LABS: ALBUMIN 3.4 G/DL (3.2-5.2); ALKALINE PHOSPHATASE 118 U/L (46-116); ALT/SGPT 23 U/L (7.0-40); AST/SGOT 20 U/L (<34); BILIRUBIN,TOTAL 0.5 MG/DL (0.3-1.2); BLOOD UREA NITROGEN 7 MG/DL (9-23); CARBON DIOXIDE LEVEL 26 MMOL/L (20-31); CHLORIDE LEVEL 108 MMOL/L (98-107); CREATININE FOR GFR 0.78 MG/DL (0.70-1.30); GLOMERULAR FILTRATION RATE > 60.0 (>49); GLUCOSE, FASTING 108 MG/DL (74-106); PHOSPHORUS LEVEL 3.3 MG/DL (2.4-5.1); POTASSIUM SERUM 4.4 MMOL/L (3.5-5.1); SODIUM LEVEL 140 MMOL/L (136-145); TOTAL PROTEIN 6.6 G/DL (5.7-8.2)
[2023-02-28] MEDS: TIOTROPIUM INHALER/CAPSULE (SPIRIVA) INH SCH (07:34)
[2023-02-28] MEDS: SYMBICORT 160/4.5MCG INHALER 6GM INH SCH ×2 (07:34→20:01)
[2023-02-28] MEDS: CLOPIDOGREL 75 MG TAB PO SCH (08:19)
[2023-02-28] MEDS: DOCUSATE SODIUM 100MG CAPSULE PO SCH ×2 (08:19→20:28)
[2023-02-28] MEDS: ENOXAPARIN 40MG/0.4ML SYRINGE (J1650 PER 10MG) SC SCH (08:20)
[2023-02-28] MEDS: FAMOTIDINE 20 MG TAB PO SCH ×2 (08:20→20:27)
[2023-02-28] MEDS: ASPIRIN 81MG ENTERIC TABLET PO SCH (08:20)
[2023-02-28] MEDS: amLODIPine 5 MG TAB PO SCH (08:20)
[2023-02-28] MEDS: buPROPion **XL** TABLET 150MG (WELLBUTRIN XL) PO SCH (08:23)
[2023-02-28] MEDS ORDERED: THIAMINE 100 MG TAB PO SCH (09:00)
[2023-02-28] MEDS ORDERED: LORazepam 2 MG TAB PO PRN (14:45)
[2023-02-28] MEDS: THIAMINE 100 MG TAB PO SCH (20:29)
[2023-02-28] MEDS: ATORVASTATIN 20 MG TAB PO SCH (20:29)
[2023-03-01 05:53] VITALS: BP 154/78; TEMP 97.7; O2SAT 92
[2023-03-01] MEDS: OXAZEPAM 10MG CAP PO SCH ×2 (05:57→20:44)
[2023-03-01 06:00] VITALS: BP 154/78
[2023-03-01 06:46] LABS: HEMOGLOBIN 13.7 g/dl (13.5-17.5); MEAN CORPUSCULAR HEMOGLOBIN 32.8 pg (27.0-33.0); MEAN CORPUSCULAR HGB CONC 34.3 g/dl (32.0-36.5); MEAN CORPUSCULAR VOLUME 95.7 fl (80.0-96.0); PLATELET COUNT, AUTOMATED 254 10^3/uL (150-450); RED BLOOD COUNT 4.18 10^6/uL (4.30-6.10); WHITE BLOOD COUNT 10.6 10^3/uL (4.0-10.0)
[2023-03-01 07:07] LABS: ALBUMIN 3.1 G/DL (3.2-5.2); ALKALINE PHOSPHATASE 111 U/L (46-116); ALT/SGPT 17 U/L (7.0-40); AST/SGOT 14 U/L (<34); BILIRUBIN,TOTAL 0.6 MG/DL (0.3-1.2); BLOOD UREA NITROGEN 9 MG/DL (9-23); CALCIUM LEVEL 8.9 MG/DL (8.3-10.6); CARBON DIOXIDE LEVEL 26 MMOL/L (20-31); CHLORIDE LEVEL 105 MMOL/L (98-107); CREATININE FOR GFR 0.73 MG/DL (0.70-1.30); GLOMERULAR FILTRATION RATE > 60.0 (>49); GLUCOSE, FASTING 106 MG/DL (74-106); SODIUM LEVEL 137 MMOL/L (136-145); TOTAL PROTEIN 6.4 G/DL (5.7-8.2)
[2023-03-01] MEDS ORDERED: predniSONE 20 MG TAB PO ONE (08:15)
[2023-03-01] MEDS: SYMBICORT 160/4.5MCG INHALER 6GM INH SCH ×2 (08:33→19:46)
[2023-03-01] MEDS: TIOTROPIUM INHALER/CAPSULE (SPIRIVA) INH SCH (08:37)
[2023-03-01] MEDS: DOCUSATE SODIUM 100MG CAPSULE PO SCH ×2 (10:22→20:44)
[2023-03-01] MEDS: ASPIRIN 81MG ENTERIC TABLET PO SCH (10:22)
[2023-03-01] MEDS: amLODIPine 5 MG TAB PO SCH (10:23)
[2023-03-01] MEDS: CLOPIDOGREL 75 MG TAB PO SCH (10:23)
[2023-03-01] MEDS: FAMOTIDINE 20 MG TAB PO SCH ×2 (10:23→20:44)
[2023-03-01] MEDS: MULTIVITAMINS/MINERALS THERAP 1 TAB PO SCH (10:23)
[2023-03-01] MEDS: THIAMINE 100 MG TAB PO SCH ×2 (10:23→20:44)
[2023-03-01] MEDS: FOLIC ACID 1MG TAB PO SCH (10:24)
[2023-03-01] MEDS: buPROPion **XL** TABLET 150MG (WELLBUTRIN XL) PO SCH (10:24)
[2023-03-01] MEDS: ENOXAPARIN 40MG/0.4ML SYRINGE (J1650 PER 10MG) SC SCH (10:24)
[2023-03-01 13:38] VITALS: BP 155/78; TEMP 97.9; O2SAT 93
[2023-03-01 14:00] VITALS: BP 155/78
[2023-03-01] MEDS: ATORVASTATIN 20 MG TAB PO SCH (20:44)
[2023-03-01] MEDS: RAMELTEON 8 MG TAB (ROZEREM) PO SCH (20:46)
[2023-03-01 22:00] VITALS: BP 154/77; TEMP 97.7; O2SAT 94
[2023-03-02 06:00] VITALS: BP 152/80; TEMP 97.7; O2SAT 94
[2023-03-02 07:25] LABS: HEMATOCRIT 39.6 % (42.0-52.0); HEMOGLOBIN 13.6 g/dl (13.5-17.5); MEAN CORPUSCULAR HEMOGLOBIN 32.9 pg (27.0-33.0); MEAN CORPUSCULAR HGB CONC 34.3 g/dl (32.0-36.5); MEAN CORPUSCULAR VOLUME 95.7 fl (80.0-96.0); PLATELET COUNT, AUTOMATED 269 10^3/uL (150-450); RED BLOOD COUNT 4.14 10^6/uL (4.30-6.10); WHITE BLOOD COUNT 9.5 10^3/uL (4.0-10.0)
[2023-03-02 07:49] LABS: ALKALINE PHOSPHATASE 107 U/L (46-116); ALT/SGPT 19 U/L (7.0-40); AST/SGOT 13 U/L (<34); BILIRUBIN,TOTAL 0.5 MG/DL (0.3-1.2); BLOOD UREA NITROGEN 12 MG/DL (9-23); CALCIUM LEVEL 8.9 MG/DL (8.3-10.6); CARBON DIOXIDE LEVEL 25 MMOL/L (20-31); CHLORIDE LEVEL 105 MMOL/L (98-107); CREATININE FOR GFR 0.69 MG/DL (0.70-1.30); GLOMERULAR FILTRATION RATE > 60.0 (>49); GLUCOSE, FASTING 108 MG/DL (74-106); POTASSIUM SERUM 4.1 MMOL/L (3.5-5.1); SODIUM LEVEL 137 MMOL/L (136-145); TOTAL PROTEIN 6.4 G/DL (5.7-8.2)
[2023-03-02] MEDS: DOCUSATE SODIUM 100MG CAPSULE PO SCH ×2 (09:37→20:16)
[2023-03-02] MEDS: FOLIC ACID 1MG TAB PO SCH (09:37)
[2023-03-02] MEDS: ASPIRIN 81MG ENTERIC TABLET PO SCH (09:37)
[2023-03-02] MEDS: FAMOTIDINE 20 MG TAB PO SCH ×2 (09:38→20:16)
[2023-03-02] MEDS: amLODIPine 5 MG TAB PO SCH (09:38)
[2023-03-02] MEDS: CLOPIDOGREL 75 MG TAB PO SCH (09:38)
[2023-03-02] MEDS: MULTIVITAMINS/MINERALS THERAP 1 TAB PO SCH (09:39)
[2023-03-02] MEDS: THIAMINE 100 MG TAB PO SCH ×2 (09:39→20:16)
[2023-03-02] MEDS: OXAZEPAM 10MG CAP PO SCH ×2 (09:39→20:16)
[2023-03-02] MEDS: buPROPion **XL** TABLET 150MG (WELLBUTRIN XL) PO SCH (09:39)
[2023-03-02] MEDS: ENOXAPARIN 40MG/0.4ML SYRINGE (J1650 PER 10MG) SC SCH (09:40)
[2023-03-02] MEDS: SYMBICORT 160/4.5MCG INHALER 6GM INH SCH ×2 (10:02→19:57)
[2023-03-02] MEDS: TIOTROPIUM INHALER/CAPSULE (SPIRIVA) INH SCH (10:02)
[2023-03-02 14:00] VITALS: BP 152/80
[2023-03-02] MEDS: ATORVASTATIN 20 MG TAB PO SCH (20:16)
[2023-03-02] MEDS: RAMELTEON 8 MG TAB (ROZEREM) PO SCH (20:16)
[2023-03-02] MEDS: ACETAMINOPHEN TAB 650MG DOSE (2X325MG) PO PRN (20:17)
[2023-03-02 22:00] VITALS: BP 109/54
[2023-03-03 05:54] VITALS: BP 109/65; TEMP 98.1; O2SAT 96
[2023-03-03 06:47] LABS: HEMATOCRIT 41.8 % (42.0-52.0); HEMOGLOBIN 14.1 g/dl (13.5-17.5); MEAN CORPUSCULAR HEMOGLOBIN 32.8 pg (27.0-33.0); MEAN CORPUSCULAR HGB CONC 33.7 g/dl (32.0-36.5); MEAN CORPUSCULAR VOLUME 97.2 fl (80.0-96.0); PLATELET COUNT, AUTOMATED 325 10^3/uL (150-450); WHITE BLOOD COUNT 10.5 10^3/uL (4.0-10.0)
[2023-03-03 07:05] LABS: ALBUMIN 3.1 G/DL (3.2-5.2); ALKALINE PHOSPHATASE 117 U/L (46-116); ALT/SGPT 29 U/L (7.0-40); AST/SGOT 18 U/L (<34); BILIRUBIN,TOTAL 0.4 MG/DL (0.3-1.2); BLOOD UREA NITROGEN 16 MG/DL (9-23); CALCIUM LEVEL 9.1 MG/DL (8.3-10.6); CARBON DIOXIDE LEVEL 26 MMOL/L (20-31); CHLORIDE LEVEL 108 MMOL/L (98-107); GLOMERULAR FILTRATION RATE > 60.0 (>49); GLUCOSE, FASTING 109 MG/DL (74-106); POTASSIUM SERUM 4.4 MMOL/L (3.5-5.1); SODIUM LEVEL 140 MMOL/L (136-145); TOTAL PROTEIN 6.6 G/DL (5.7-8.2)
[2023-03-03] MEDS: TIOTROPIUM INHALER/CAPSULE (SPIRIVA) INH SCH (07:27)
[2023-03-03] MEDS: SYMBICORT 160/4.5MCG INHALER 6GM INH SCH ×2 (07:27→19:35)
[2023-03-03 09:00] VITALS: BP 131/79
[2023-03-03] MEDS: DOCUSATE SODIUM 100MG CAPSULE PO SCH ×2 (09:04→20:46)
[2023-03-03] MEDS: ENOXAPARIN 40MG/0.4ML SYRINGE (J1650 PER 10MG) SC SCH (09:04)
[2023-03-03] MEDS: FOLIC ACID 1MG TAB PO SCH (09:05)
[2023-03-03] MEDS: THIAMINE 100 MG TAB PO SCH (09:05)
[2023-03-03] MEDS: MULTIVITAMINS/MINERALS THERAP 1 TAB PO SCH (09:05)
[2023-03-03] MEDS: CLOPIDOGREL 75 MG TAB PO SCH (09:05)
[2023-03-03] MEDS: OXAZEPAM 10MG CAP PO SCH ×2 (09:05→20:47)
[2023-03-03] MEDS: buPROPion **XL** TABLET 150MG (WELLBUTRIN XL) PO SCH (09:05)
[2023-03-03] MEDS: ASPIRIN 81MG ENTERIC TABLET PO SCH (09:05)
[2023-03-03] MEDS: FAMOTIDINE 20 MG TAB PO SCH ×2 (09:05→20:47)
[2023-03-03] MEDS: amLODIPine 5 MG TAB PO SCH (09:06)
[2023-03-03 14:00] VITALS: BP 135/79
[2023-03-03] MEDS: RAMELTEON 8 MG TAB (ROZEREM) PO SCH (20:46)
[2023-03-03] MEDS: ATORVASTATIN 20 MG TAB PO SCH (20:46)
[2023-03-03] MEDS: ACETAMINOPHEN TAB 650MG DOSE (2X325MG) PO PRN (20:50)
[2023-03-03 22:00] VITALS: BP 137/80
[2023-03-04 06:09] VITALS: BP 136/81; TEMP 97.9; O2SAT 96
[2023-03-04] MEDS: SYMBICORT 160/4.5MCG INHALER 6GM INH SCH (07:35)
[2023-03-04] MEDS: TIOTROPIUM INHALER/CAPSULE (SPIRIVA) INH SCH (07:35)
[2023-03-04 07:38] LABS: HEMATOCRIT 41.6 % (42.0-52.0); HEMOGLOBIN 13.7 g/dl (13.5-17.5); MEAN CORPUSCULAR HEMOGLOBIN 32.6 pg (27.0-33.0); MEAN CORPUSCULAR HGB CONC 32.9 g/dl (32.0-36.5); PLATELET COUNT, AUTOMATED 354 10^3/uL (150-450); WHITE BLOOD COUNT 8.7 10^3/uL (4.0-10.0)
[2023-03-04 08:03] LABS: ALBUMIN 3.1 G/DL (3.2-5.2); ALKALINE PHOSPHATASE 119 U/L (46-116); ALT/SGPT 27 U/L (7.0-40); AST/SGOT 16 U/L (<34); BILIRUBIN,TOTAL 0.5 MG/DL (0.3-1.2); BLOOD UREA NITROGEN 15 MG/DL (9-23); CALCIUM LEVEL 9.1 MG/DL (8.3-10.6); CARBON DIOXIDE LEVEL 27 MMOL/L (20-31); CHLORIDE LEVEL 107 MMOL/L (98-107); CREATININE FOR GFR 0.75 MG/DL (0.70-1.30); GLOMERULAR FILTRATION RATE > 60.0 (>49); GLUCOSE, FASTING 99 MG/DL (74-106); POTASSIUM SERUM 4.5 MMOL/L (3.5-5.1); SODIUM LEVEL 140 MMOL/L (136-145); TOTAL PROTEIN 6.5 G/DL (5.7-8.2)
[2023-03-04] MEDS: ENOXAPARIN 40MG/0.4ML SYRINGE (J1650 PER 10MG) SC SCH (09:25)
[2023-03-04] MEDS: DOCUSATE SODIUM 100MG CAPSULE PO SCH (09:26)
[2023-03-04] MEDS: ASPIRIN 81MG ENTERIC TABLET PO SCH (09:26)
[2023-03-04] MEDS: buPROPion **XL** TABLET 150MG (WELLBUTRIN XL) PO SCH (09:26)
[2023-03-04] MEDS: FAMOTIDINE 20 MG TAB PO SCH (09:26)
[2023-03-04] MEDS: CLOPIDOGREL 75 MG TAB PO SCH (09:26)
[2023-03-04] MEDS: MULTIVITAMINS/MINERALS THERAP 1 TAB PO SCH (09:26)
[2023-03-04] MEDS: FOLIC ACID 1MG TAB PO SCH (09:26)
[2023-03-04] MEDS: OXAZEPAM 10MG CAP PO SCH (09:26)
[2023-03-04 09:27] VITALS: BP 140/78
[2023-03-04] MEDS: amLODIPine 5 MG TAB PO SCH (09:27)
[2023-03-04] MEDS ORDERED: THIA100TA PO (13:58)
[2023-03-04] MEDS ORDERED: FOLI1TAB11 PO (13:58)
[2023-03-04] MEDS ORDERED: OXAZ10CA3 PO (13:58)
[2023-03-05] MEDS ORDERED: OXAZEPAM 10MG CAP PO SCH (09:00)
== END 2023-03-04 15:55 | disposition home or self-care (01) | DRG 896 ==
LOC: M ED 20:34 → INTOOBSV 23:07 → M ED INP 23:07 → OBSVTOIN 23:07 → ENRESERV 23:50 → M MSPAV 02-26 00:57 → M ICU 02-26 19:04 → M MS5PR 02-28 22:01
PROVIDERS: ADMIT Family Medicine; ATTEND Internal Medicine Nephrology
DX: F10.239 Alcohol dependence with withdrawal, unspecified (principal); G93.41 Metabolic encephalopathy; J44.1 Chronic obstructive pulmonary disease with (acute) exacerbation; R55 Syncope and collapse; I10 Essential (primary) hypertension; E78.5 Hyperlipidemia, unspecified; K57.90 Diverticulosis of intestine, part unspecified, without perforation or abscess without bleeding; R26.89 Other abnormalities of gait and mobility; Z86.73 Personal history of transient ischemic attack (TIA), and cerebral infarction without residual deficits; F12.90 Cannabis use, unspecified, uncomplicated; K64.8 Other hemorrhoids; F32.A Depression, unspecified; Z79.899 Other long term (current) drug therapy; Z79.82 Long term (current) use of aspirin; Z87.891 Personal history of nicotine dependence

== ENCOUNTER → 2023-03-25 | Outpatient (REF) | payer MEDICARE ==
[~2023-03-25] MED LIST changes: +ALBU8.5H INH; +AMLO1TAB24 PO; +CLOP75TA99 PO; +FAMO1TAB11 PO; +FOLI1TAB11 PO; +LISI30TA4 PO; +OXAZ10CA3 PO; +THIA100TA PO
[2023-03-25 14:31] LABS: CREATININE FOR GFR 0.72 MG/DL (0.70-1.30); GLOMERULAR FILTRATION RATE > 60.0 (>49)
== END ==
LOC: M LAB REF 12:53
PROVIDERS: ATTEND Otolaryngology
DX: R80.9 Proteinuria, unspecified (principal); J31.2 Chronic pharyngitis

== ENCOUNTER → 2023-03-31 | Outpatient (CLI) | payer MEDICARE ==
[~2023-03-31] MED LIST changes: +ISOVUE-370 76% 100ML VIAL As Ordered ONE
== END ==
LOC: M RAD 10:24
PROVIDERS: ATTEND Otolaryngology
DX: J31.2 Chronic pharyngitis (principal)
CPT/HCPCS: 70491; Q9967

== ENCOUNTER → 2023-08-20 | Outpatient (CLI) | payer MEDICARE ==
[~2023-08-20] MED LIST changes: -ISOVUE-370 76% 100ML VIAL As Ordered ONE
== END ==
LOC: M PLAIMG 10:27
PROVIDERS: ATTEND Physician Assistant
DX: R91.8 Other nonspecific abnormal finding of lung field (principal); J44.9 Chronic obstructive pulmonary disease, unspecified

== ENCOUNTER → 2023-10-10 | Outpatient (REF) | payer MEDICARE ==
[2023-10-10 13:46] LABS: HEMATOCRIT 44.9 % (42.0-52.0); HEMOGLOBIN 14.2 g/dl (13.5-17.5); MEAN CORPUSCULAR HEMOGLOBIN 32.9 pg (27.0-33.0); MEAN CORPUSCULAR HGB CONC 31.6 g/dl (32.0-36.5); MEAN CORPUSCULAR VOLUME 104.2 fl (80.0-96.0); PLATELET COUNT, AUTOMATED 332 10^3/uL (150-450); RED BLOOD COUNT 4.31 10^6/uL (4.30-6.10); WHITE BLOOD COUNT 9.5 10^3/uL (4.0-10.0)
[2023-10-10 13:49] LABS: CPK CREATINE PHOSPHOKINASE 116 U/L (46-171)
[2023-10-10 13:51] LABS: ALBUMIN 3.7 G/DL (3.2-5.2); ALKALINE PHOSPHATASE 90 U/L (46-116); ALT/SGPT 15 U/L (7.0-40); AST/SGOT 14 U/L (<34); BILIRUBIN,TOTAL 0.4 MG/DL (0.3-1.2); BLOOD UREA NITROGEN 12 MG/DL (9-23); CALCIUM LEVEL 9.6 MG/DL (8.3-10.6); CARBON DIOXIDE LEVEL 27 MMOL/L (20-31); CHLORIDE LEVEL 105 MMOL/L (98-107); CHOLESTEROL LEVEL 157 MG/DL (<200); CHOLESTEROL RISK RATIO 4.46 (<5); CREATININE FOR GFR 0.82 MG/DL (0.70-1.30); GLOMERULAR FILTRATION RATE > 60.0 (>49); GLUCOSE, FASTING 103 MG/DL (74-106); HDL CHOLESTEROL 35.2 MG/DL (>40); LDL CHOLESTEROL 73.8 MG/DL (<100); MAGNESIUM LEVEL 1.7 MG/DL (1.8-2.4); NON-HDL-C 121.8 MG/DL; POTASSIUM SERUM 4.5 MMOL/L (3.5-5.1); SODIUM LEVEL 140 MMOL/L (136-145); THYROID STIMULATING HORMONE 0.318 uIU/ML (0.55-4.78); TRIGLYCERIDES LEVEL 240 MG/DL (<150)
== END ==
LOC: M LABDRWAD 12:30
PROVIDERS: ATTEND Internal Medicine
DX: J44.9 Chronic obstructive pulmonary disease, unspecified (principal); I10 Essential (primary) hypertension; E78.00 Pure hypercholesterolemia, unspecified

== ENCOUNTER → 2024-03-25 | Outpatient (REF) | payer MEDICARE ==
[2024-03-25 13:22] LABS: BLOOD UREA NITROGEN 11 MG/DL (9-23); CALCIUM LEVEL 9.7 MG/DL (8.3-10.6); CARBON DIOXIDE LEVEL 25 MMOL/L (20-31); CHLORIDE LEVEL 105 MMOL/L (98-107); CREATININE FOR GFR 0.67 MG/DL (0.70-1.30); GLOMERULAR FILTRATION RATE > 60.0 (>49); GLUCOSE, FASTING 92 MG/DL (74-106); POTASSIUM SERUM 4.7 MMOL/L (3.5-5.1); SODIUM LEVEL 136 MMOL/L (136-145)
== END ==
LOC: M LAB REF 12:47
PROVIDERS: ATTEND Internal Medicine
DX: Z00.00 Encounter for general adult medical examination without abnormal findings (principal); R73.09 Other abnormal glucose; F10.99 Alcohol use, unspecified with unspecified alcohol-induced disorder

== ENCOUNTER → 2024-03-31 | Outpatient (REF) | payer MEDICARE | LOC: M LAB REF 16:51 | PROVIDERS: ATTEND Internal Medicine | DX: J44.9 Chronic obstructive pulmonary disease, unspecified (principal); F10.91 Alcohol use, unspecified, in remission; R63.4 Abnormal weight loss ==

== ENCOUNTER → 2024-07-07 | Outpatient (REF) | payer MEDICARE ==
[2024-07-07 14:03] LABS: HEMOGLOBIN 15.1 g/dl (13.5-17.5); MEAN CORPUSCULAR HEMOGLOBIN 34.6 pg (27.0-33.0); MEAN CORPUSCULAR HGB CONC 32.8 g/dl (32.0-36.5); MEAN CORPUSCULAR VOLUME 105.3 fl (80.0-96.0); PLATELET COUNT, AUTOMATED 356 10^3/uL (150-450); RED BLOOD COUNT 4.37 10^6/uL (4.30-6.10); WHITE BLOOD COUNT 8.5 10^3/uL (4.0-10.0)
[2024-07-07 14:15] LABS: ALBUMIN 3.9 G/DL (3.2-5.2); ALKALINE PHOSPHATASE 106 U/L (40-129); ALT/SGPT 18 U/L (7.0-40); AST/SGOT 16 U/L (<34); BILIRUBIN,TOTAL 0.5 MG/DL (0.3-1.2); BLOOD UREA NITROGEN 10 MG/DL (9-23); CALCIUM LEVEL 9.9 MG/DL (8.3-10.6); CARBON DIOXIDE LEVEL 27 MMOL/L (20-31); CHLORIDE LEVEL 105 MMOL/L (98-107); CHOLESTEROL LEVEL 165 MG/DL (<200); CHOLESTEROL RISK RATIO 4.07 (<5); GLOMERULAR FILTRATION RATE > 60.0 (>49); GLUCOSE, FASTING 101 MG/DL (74-106); HDL CHOLESTEROL 40.5 MG/DL (>40); LDL CHOLESTEROL 82.3 MG/DL (<100); NON-HDL-C 124.5 MG/DL; POTASSIUM SERUM 5.2 MMOL/L (3.5-5.1); SODIUM LEVEL 140 MMOL/L (136-145); TOTAL PROTEIN 7.7 G/DL (5.7-8.2); TRIGLYCERIDES LEVEL 211 MG/DL (<150)
== END ==
LOC: M LABDRWAD 12:39
PROVIDERS: ATTEND Internal Medicine
DX: R63.4 Abnormal weight loss (principal); I10 Essential (primary) hypertension; E78.00 Pure hypercholesterolemia, unspecified

== ENCOUNTER → 2024-08-25 | Outpatient (CLI) | payer MEDICARE | LOC: M RAD 09:35 | PROVIDERS: ATTEND Internal Medicine Pulmonary Disease | DX: R91.8 Other nonspecific abnormal finding of lung field (principal); F17.218 Nicotine dependence, cigarettes, with other nicotine-induced disorders ==

== ENCOUNTER 2024-08-31 06:52 | Day surgery (SDC) | payer MEDICARE ==
[~2024-08-31] VITALS: Ht 182.9 cm; Wt 82.5 kg
[2024-08-31] MEDS ORDERED: CIPRODEX OTIC SUSP 7.5ML As Ordered ONE (08:02)
[2024-08-31] MEDS ORDERED: fentaNYL 100 MCG/2 ML INJECTION As Ordered ONE (08:32)
[2024-08-31] MEDS ORDERED: SUGAMMADEX SODIUM 500 MG/5 ML VIAL (BRIDION) As Ordered ONE (08:32)
[2024-08-31] MEDS ORDERED: ACETAMINOPHEN 1000MG/100ML IV BAG As Ordered ONE (08:32)
[2024-08-31] MEDS ORDERED: propofoL 200 MG/20 ML VIAL As Ordered ONE (08:32)
[2024-08-31] MEDS ORDERED: ONDANSETRON 4MG 2ML VIAL As Ordered ONE (08:32)
[2024-08-31] MEDS ORDERED: MIDAZOLAM INJ 2MG/2ML VIAL As Ordered ONE (08:32)
[2024-08-31] MEDS ORDERED: ROCURONIUM BROMIDE 50MG/5ML VIAL As Ordered ONE (08:32)
[2024-08-31] MEDS ORDERED: LIDOCAINE 2% 100MG/5ML SDV (FOR ANES.) As Ordered ONE (08:32)
[2024-08-31] MEDS ORDERED: OXYMETAZOLINE 0.05% NASAL SPRAY As Ordered ONE (08:45)
[2024-08-31] MEDS ORDERED: HYDROMORPHONE HCL 0.5 MG/ 0.5 ML SYRINGE IV PRN (09:05)
[2024-08-31] MEDS ORDERED: fentaNYL 100 MCG/2 ML INJECTION IV PRN (09:05)
[2024-08-31] MEDS ORDERED: oxyCODONE 5MG TAB PO PRN (09:05)
[2024-08-31] MEDS ORDERED: ONDANSETRON 4MG 2ML VIAL IV PRN (09:05)
[2024-08-31] MEDS ORDERED: LR 1,000 ML IV SCH (09:05)
[2024-08-31] MEDS ORDERED: IPRATROPIUM 0.5MG/ALBUTEROL 2.5MG INH SOL UD 3ML NEB PRN (09:20)
[2024-08-31 09:44] VITALS: BP 152/67; TEMP 97.4; O2SAT 93
[2024-09-13] MEDS ORDERED: HYDR1SOL22 PO (10:02)
[2024-09-13] MEDS ORDERED: LIDO15SO8 PO (10:17)
== END 2024-08-31 10:23 | disposition home or self-care (01) ==
LOC: M SDC 06:52
PROVIDERS: ATTEND Otolaryngology
DX: C32.9 Malignant neoplasm of larynx, unspecified (principal); H92.01 Otalgia, right ear; J31.2 Chronic pharyngitis; H61.23 Impacted cerumen, bilateral; I10 Essential (primary) hypertension; Z86.73 Personal history of transient ischemic attack (TIA), and cerebral infarction without residual deficits; K21.9 Gastro-esophageal reflux disease without esophagitis; E55.9 Vitamin D deficiency, unspecified; F32.A Depression, unspecified; F10.20 Alcohol dependence, uncomplicated; Z79.82 Long term (current) use of aspirin; Z79.51 Long term (current) use of inhaled steroids; Z79.899 Other long term (current) drug therapy
CPT/HCPCS: 31536; 88305; J0131; J1100; J2250; J2405; J3010

== ENCOUNTER → 2024-09-13 | Outpatient (CLI) | payer MEDICARE ==
[~2024-09-13] MED LIST changes: +HYDR1SOL22 PO; +LIDO15SO8 PO
== END ==
LOC: M ONCR 09:38
PROVIDERS: ATTEND General Practice
DX: C32.1 Malignant neoplasm of supraglottis (principal); F17.210 Nicotine dependence, cigarettes, uncomplicated; Z80.3 Family history of malignant neoplasm of breast; Z79.02 Long term (current) use of antithrombotics/antiplatelets; Z79.82 Long term (current) use of aspirin; Z79.899 Other long term (current) drug therapy
CPT/HCPCS: 31575; G0463

== ENCOUNTER → 2024-09-21 | Outpatient (CLI) | payer MEDICARE | LOC: M PLARAD 07:31 | PROVIDERS: ATTEND General Practice | DX: C32.1 Malignant neoplasm of supraglottis (principal) | CPT/HCPCS: 78815; A9552 ==

== ENCOUNTER 2024-11-24 09:36 | Outpatient (RCR) | payer MEDICARE ==
[~2024-11-24 09:36] MED LIST changes: +OXYC1SOL3 PO
[2024-11-25] MEDS ORDERED: OXYC1SOL3 PO ×2 (10:54→11:50)
== END 2024-12-23 ==
LOC: M ONCR 09:36
PROVIDERS: ATTEND General Practice
DX: Z51.0 Encounter for antineoplastic radiation therapy (principal); C32.1 Malignant neoplasm of supraglottis

== ENCOUNTER → 2024-12-08 | Outpatient (CLI) | payer MEDICARE | LOC: M ONCR 09:37 | PROVIDERS: ATTEND General Practice | DX: C32.1 Malignant neoplasm of supraglottis (principal); Z79.82 Long term (current) use of aspirin; Z79.899 Other long term (current) drug therapy; Z92.3 Personal history of irradiation ==

== ENCOUNTER → 2024-12-30 | Outpatient (CLI) | payer MEDICARE ==
[2024-12-30 13:31] LABS: BASO # 0.1 10^3/uL (0.0-0.2); BASO % 1.1 % (0.0-1.0); EOS # 0.4 10^3/uL (0.0-0.5); EOS % 6.5 % (0.0-3.0); LYMPH # 0.6 10^3/uL (1.5-5.0); LYMPH % 9.0 % (24.0-44.0); MONO # 0.9 10^3/uL (0.0-0.8); MONO % 13.6 % (2.0-8.0); NEUTROPHILS # 4.4 10^3/uL (1.5-8.5); NEUTROPHILS % 69.5 % (36.0-66.0); PLATELET COUNT, AUTOMATED 402 10^3/uL (150-450)
[2024-12-30 13:41] LABS: ALT/SGPT 21 U/L (7.0-40); AST/SGOT 19 U/L (<34); CALCIUM LEVEL 9.2 MG/DL (8.3-10.6); CARBON DIOXIDE LEVEL 26 MMOL/L (20-31); CHLORIDE LEVEL 104 MMOL/L (98-107); CHOLESTEROL LEVEL 109 MG/DL (<200); CHOLESTEROL RISK RATIO 3.14 (<5); CREATININE FOR GFR 0.88 MG/DL (0.70-1.30); GLOMERULAR FILTRATION RATE > 90.0 (>49); LDL CHOLESTEROL 52.9 MG/DL (<100); MAGNESIUM LEVEL 1.9 MG/DL (1.8-2.4); NON-HDL-C 74.3 MG/DL; POTASSIUM SERUM 5.1 MMOL/L (3.5-5.1); SODIUM LEVEL 141 MMOL/L (136-145); TRIGLYCERIDES LEVEL 107 MG/DL (<150)
[2024-12-30 13:48] LABS: CPK CREATINE PHOSPHOKINASE 51 U/L (46-171)
== END ==
LOC: M LABDRWAD 09:22
PROVIDERS: ATTEND Internal Medicine
DX: I10 Essential (primary) hypertension (principal); E78.00 Pure hypercholesterolemia, unspecified; F32.89 Other specified depressive episodes; R73.09 Other abnormal glucose

== ENCOUNTER → 2025-02-17 | Outpatient (CLI) | payer MEDICARE ==
[~2025-02-17] MED LIST changes: +MUCI1LIQ3 PO; +PROHANCE 279.3MG/ML 15ML VIAL As Ordered ONE
== END ==
LOC: M RAD 10:29
PROVIDERS: ATTEND General Practice
DX: C32.1 Malignant neoplasm of supraglottis (principal)
CPT/HCPCS: 70543; A9576

== ENCOUNTER → 2025-02-21 | Outpatient (CLI) | payer MEDICARE ==
[~2025-02-21] MED LIST changes: -PROHANCE 279.3MG/ML 15ML VIAL As Ordered ONE
== END ==
LOC: M PLARAD 08:55
PROVIDERS: ATTEND General Practice
DX: C32.1 Malignant neoplasm of supraglottis (principal)
CPT/HCPCS: 78815; A9552

== ENCOUNTER → 2025-02-24 | Outpatient (CLI) | payer MEDICARE ==
[~2025-02-24] MED LIST changes: +TRAM50TA2 PO
== END ==
LOC: M ONCR 09:44
PROVIDERS: ATTEND General Practice
DX: C32.1 Malignant neoplasm of supraglottis (principal); Z92.3 Personal history of irradiation; F17.210 Nicotine dependence, cigarettes, uncomplicated; Z79.02 Long term (current) use of antithrombotics/antiplatelets; Z79.899 Other long term (current) drug therapy; Z79.82 Long term (current) use of aspirin
CPT/HCPCS: 31575; G0463

== ENCOUNTER → 2025-05-13 | Outpatient (REF) | payer MEDICARE ==
[~2025-05-13] MED LIST changes: +OXYC5SOL11 PO
[2025-05-13 13:50] LABS: FREE T4 1.04 NG/DL (0.89-1.76)
[2025-05-13 13:52] LABS: ALT/SGPT 18 U/L (7.0-40); AST/SGOT 15 U/L (<34); CALCIUM LEVEL 9.0 MG/DL (8.3-10.6); CARBON DIOXIDE LEVEL 28 MMOL/L (20-31); CHLORIDE LEVEL 103 MMOL/L (98-107); CREATININE FOR GFR 0.72 MG/DL (0.70-1.30); GLOMERULAR FILTRATION RATE > 90.0 (>42); POTASSIUM SERUM 4.4 MMOL/L (3.5-5.1); SODIUM LEVEL 141 MMOL/L (136-145)
== END ==
LOC: M LABDRWAD 12:58
PROVIDERS: ATTEND General Practice
DX: C32.1 Malignant neoplasm of supraglottis (principal); Z79.899 Other long term (current) drug therapy

== ENCOUNTER → 2025-05-23 | Outpatient (CLI) | payer MEDICARE ==
[~2025-05-23] MED LIST changes: +ISOVUE-370 76% 100 ML VIAL As Ordered ONE
== END ==
LOC: M RAD 09:15
PROVIDERS: ATTEND General Practice
DX: C32.1 Malignant neoplasm of supraglottis (principal)
CPT/HCPCS: 70491; Q9967